=== PATIENT | male | born 1980 | race Caucasian/White ===

== ENCOUNTER 2021-02-07 14:26 | Outpatient (AMBR) | payer MEDICAID, SELFPAY ==
--- NOTE | 2021-02-02 14:37 | PT.OIERPT ---
PT OP Initial Eval Patient Information Visit Reasons: left hand metacarpal Medical Diagnosis: S63.065s Treatment Dx #1: Left Hand Pain Treatment Dx #2: Left Hand Weakness Start of Care: 02/02/21 Date of Onset: Sep 2020 Initial Assessment Subjective Pt is a 41 y/o male pin removal of 4th and 5th metacarpal s/p ORIF in Sep 2020 after he broke his hand by punching a tool bag. Pt still has left hand pain (6/10) and weakness. 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
--- NOTE | 2021-02-07 15:35 | PT.ODAYNRPT ---
PT Outpatient Daily Note Date of Service: 02/07/21 OP Daily Note Visit Reasons: left hand metacarpal Outpatient Physical Therapy Treatment Date: 02/07/21 Subjective: Pt mention that his hand is okay Objective: Please see flow chart for list of ther ex performed Assessment: tolerate exercises with minimal pain Plan: Continue with PT Length of Time (minutes) of Treatment: 30 Minutes Office Procedures PT Treatments PT Date of Service: 02/02/21 OP PT Eval Mod Complex 30 minutes: Yes PT Treatments PT Date of Service: 02/07/21 Therapeutic Exercise 30 minutes: Yes
== END 2021-02-16 23:59 | disposition home or self-care (01) ==
PROVIDERS: PCP Physician Assistant Medical; Referring Provider Physician Assistant Medical; Visit Provider Physician Assistant Medical
DX: S63.06 Subluxation and dislocation of metacarpal (bone), proximal end (principal); M79.642 Pain in left hand; R53.1 Weakness; X58.XXXS Exposure to other specified factors, sequela
CPT/HCPCS: 97110; 97162

== ENCOUNTER 2024-12-08 00:36 | Emergency (ER) | payer MEDICAID, SELFPAY ==
[2024-12-08 00:40] VITALS: PULSE 130; RESP 20; BMI 25.0
[2024-12-08 00:46] VITALS: BP 193/136; PULSE 133; RESP 20; TEMP 37.3; O2SAT 99
[2024-12-08 00:51] VITALS: PULSE 130
--- NOTE | 2024-12-08 00:59 | EDNOTE_ITS ---
ED Abdominal Pain RME/HPI General Chief Complaint: Abdominal Pain Stated complaint: ABDOMINAL PAIN Time seen by provider: 12/08/24 01:00 Arrival date/time: 12/08/24 00:36 RME / HPI RME / HPI narrative: Dr. Mercado?s Main ED Evaluation: 44yo male with a history of IDDM, HTN, HLD, gastroparesis BIBA from home presents to the ED for a chief complaint of diffuse abdominal pain x 5 days. Patient reports associated nausea and vomiting, reporting he has been unable to keep anything down. Patient has been compliant with his medications. Patient denies any fever, chills, or any other associated symptoms. Denies any previous instances of DKA. Patient admits to smoking marijuana. Related Data Home Medications ?Medication ?Instructions ?Recorded ?Confirmed acetaminophen 650 mg 650 mg PO PRN PRN Pain 09/1309/29/23 tablet,extended release (Tylenol 8 Hour) diclofenac sodium 1 % topical gel 2 g topical QDAY 09/29/23 loperamide 2 mg capsule 2 mg PO PRN PRN loose stool 09/14/23 09/29/23 (Anti-Diarrheal (loperamide)) sitagliptin phosphate 100 mg 25 mg PO QDAY 09/14/23 tablet (Januvia) zolpidem 10 mg tablet 10 mg PO QHS PRN insomnia 09/29/23 Previous Rx's ?Medication ?Instructions ?Recorded pen needle, diabetic 31 gauge x #100 ea 08/30/2205/02 (AboutTime Pen Needle) insulin lispro 100 unit/mL 1 sliding scale dose subcut 03/05/23 subcutaneous pen (Humalog KwikPen USEASDIRECTD 1 month #15 mL (U-100) Insulin) lancets 30 gauge #200 ea 03/05/23 blood-glucose sensor (FreeStyle #2 ea 04/09/23 Bernardo 3 Sensor device) flash glucose scanning reader #1 ea 04/09/23 (FreeStyle Bernardo 2 Solway) insulin glargine 100 unit/mL (3 20 unit (0.2 mL) subcu t QPM 1 04/09/23 mL) subcutaneous pen (Lantus month #6 mL Solostar U-100 Insulin) blood-glucose sensor (FreeStyle #1 ea 05/04/23 Bernardo 3 Sensor device) fluoxetine 20 mg capsule 20 mg PO QDAY 1 month #30 ca ps 05/09/23 metoprolol succinate 25 mg 25 mg PO QHS #30 tabs 07/07 tablet,extended release 24 hr magnesium citrate 150 ml PO QDAY PRN constipat ion 09/14/23 #296 mL metoclopramide HCl 10 mg tablet 10 mg PO Q8HR nausea a nd vomiting 09/14/23 (Reglan) #90 tabs pantoprazole 20 mg tablet,delayed 20 mg PO BID #60 tab s 09/14/23 release blood sugar diagnostic (Accu-Chek #100 ea 09/29/23 Guide test strips) blood-glucose meter (Accu-Chek #1 ea 09/29/23 Guide Me Glucose Meter) celecoxib 100 mg capsule (Celebrex) 100 mg PO BID PRN pain #60 caps 09/29/23 gabapentin 800 mg tablet 800 mg PO TID 1 month #90 ta bs 09/29/23 lisinopril 10 mg tablet 10 mg PO QDAY Hypertension # 30 tabs 09/29/23 metoclopramide HCl 10 mg tablet 10 mg PO Q6H PRN nause a and 12/08/24 (Reglan) vomiting #30 tabs Allergies Allergy/AdvReac Type Severity Reaction Status Date / Time hydrocodone Allergy Severe itching Verified 12/08/24 00:46 morphine Allergy Mild Hypertensio Verified 12/08/24 00:46 n Review of Systems Review of Systems Systems Reviewed: All systems reviewed, normal except as documented Past Medical History Past Medical History NEUROLOGIC: Negative Neurological Disorders or Seizures CARDIAC: Positive Hypercholesterolemia and Hypertension; Negative Cardiac Disorders or Congestive Heart Failure RESPIRATORY: Negative Chronic Obstructive Pulmonary Disease (COPD) or Asthma GASTROINTESTINAL: Positive Gastrointestinal Disorders and Ulcer; Negative Gastroesophageal Reflux Disease GENITOURINARY: Positive Renal Disease; Negative Genitourinary Disorders MUSCULOSKELETAL: Negative Musculoskeletal Disorders ENDOCRINE: Positive Endocrine Disorders and Diabetes Mellitus Type 2; Negative Diabetes Mellitus Type 1 HEMATOLOGIC: Negative Blood Disorders or Sickle Cell Disease PSYCHO/SOCIAL: Positive Recreational Drug Use OTHER HISTORY: Negative Autoimmune Disease, Blood Transfusions, Blood Transfusion Reaction, Anesthesia Reactions, Organ Transplant, MRSA, Clostridium Difficile or Cancer Family History FAMILY HISTORY: Positive Family Cardiac Disorders; Negative Family Psychiatric Problems, Family Respiratory Disorders, Family Gastrointestinal Problems, Family Cancer, Family Surgery or Family Anesthesia Reaction Surgical History SURGICAL: Negative Cardiac Surgery, Ear Surgery, Abdominal Surgery, Nephrectomy, Joint Replacement, Neurologic Surgery, Vasectomy or Organ Transplant Social History SMOKING STATUS: Current some day smoker SECOND HAND EXPOSURE: No SUBSTANCE USE: marijuana (QUIT 2 WKS AGO OF 11/07/20. ) ED Exam Narrative Physical exam: Generally patient is alert somewhat ill-appearing, heart tachycardic rate with regular rhythm, lungs clear to auscultation equal bilaterally, abdomen soft bowel sounds present nondistended with epigastric abdominal tenderness without rebound, skin is cool pale and dry, neurologic exam [place] Coma Scale of 15 Course Quality Measures none Orders Category Date Time Status CT Screening NOW Care 12/08/24 01:09 Active EKG (ED ONLY) *Do not use* NOW Care 12/08/24 00:[address] abdomen pelvis w con Stat Exams 12/08/24 01:09 Ordered EKG (ED Only) Stat Exams 12/08/24 00:51 Ordered CBC Stat Lab 12/08/24 01:10 Completed CMP [Comprehensive Metabolic Panel] Stat Lab 12/08/24 01:10 Completed Drug Screen,Urine Stat Lab 12/08/24 01:25 Completed Lactic Acid [Lactate (Lactic Acid)] Stat Lab 12/08/24 01:10 Results Lipase Stat Lab 12/08/24 01:10 Completed VBG [Venous Blood Gas] Stat Lab 12/08/24 01:10 Completed HYDROmorphone INJ [Dilaudid Inj] Med 12/08/24 01:35 Discontinued 1 mg IVP X1 ONE Haloperidol Lactate [Haldol Inj] Med 12/08/24 01:05 Discontinued 5 mg IV X1 ONE Metoclopramide Inj [Reglan Inj] Med 12/08/24 00:57 Discontinued 10 mg IVP X1 ONE Sodium Chloride 0.9% 1000 ml [Ns] 1,000 ml Med 12/08/24 00:58 Discontinued IV 999 mls/hr Sodium Chloride 0.9% 1000 ml [Ns] 1,000 ml Med 12/08/24 01:05 Discontinued IV 999 mls/hr Vital Signs Vital signs: Vital Signs Temperature 99.1 F 12/08/24 00:46 Pulse Rate 133 H 12/08/24 00:46 Respiratory Rate 20 12/08/24 00:46 Blood Pressure 193/136 H 12/08/24 00:46 Pulse Oximetry (%) 99 12/08/24 00:46 Oxygen Delivery Method Room Air 12/08/24 00:46 Abdominal Pain [facility] Narrative [facility] Narrative:: Scribe Attestation: 12/08/24 - Priscilla Rodrigues am scribing for and in the presence of Dr. Mercado. I interpreted all labs. Patient uses marijuana on a regular basis. He states he has been compliant with his insulin. He does have a history of diabetic gastroparesis and has had cannabinoid hyperemesis syndrome in the past. He continues to smoke marijuana. He patient was hydrated with 2 L of IV normal saline. He is not in diabetic ketoacidosis. He was given Reglan 10 mg IV, Haldol 5 mg IV and Dilaudid 1 mg IV with marked improvement. Abdominal exam is quite benign. Patient is not diabetic ketoacidosis. Patient was counseled on the need to stop marijuana. Reglan as prescribed. Follow-up with his doctor. Continue his current insulin regimen. Return to ER as needed or if condition worsens. Patient data External records reviewed:: [facility] previous records (Per chart review, patient was admitted here on 09/12/23 for lactic acidosis.) and EMS form Clinical information provided by:: patient Social determinants that could affect healthcare access:: substance use (marijuana use) Patient has the following chronic illnesses:: DMII, HTN, HLD, gastroparesis How is presenting disease/condition affected by chronic disease/condition?: exacerbated by Evaluation data The following diagnostics were reviewed and interpreted by me:: lab results and EKG tracing(s) Lab and/or radiology exams considered but not ordered:: none Interpretation Summary: See [facility] Medications / Prescriptions Medications or Prescriptions considered but not ordered:: none Medication administrations:: Medication Administration History Discontinued Medications Haloperidol Lactate (Haloperidol Lact Inj 5 Mg/Ml Vial) 5 mg IV X1 ONE Stop: 12/08/24 01:06 Last Admin: 12/08/24 01:13 Dose: 5 mg Documented By: EVANS Hydromorphone HCl (Hydromorphone Inj 2 Mg/Ml Vial) 1 mg IVP X1 ONE Stop: 12/08/24 01:36 Last Admin: 12/08/24 01:58 Dose: 1 mg Documented By: LB Sodium Chloride (Ns) 1,000 mls @ 999 mls/hr IV .Q1H1M ONE Stop: 12/08/24 01:58 Last Infusion: 12/08/24 02:17 Dose: Infused Documented By: Admin: 12/08/24 01:14 Dose: 999 mls/hr Documented By: EVANS Sodium Chloride (Ns) 1,000 mls @ 999 mls/hr IV .Q1H1M ONE Stop: 12/08/24 02:05 Last Infusion: 12/08/24 02:18 Dose: Infused Documented By: Admin: 12/08/24 01:14 Dose: 999 mls/hr Documented By: EVANS Metoclopramide HCl (Metoclopramide Inj 5 Mg/Ml Vial 2 Ml) 10 mg IVP X1 ONE; Protocol Stop: 12/08/24 00:58 Last Admin: 12/08/24 01:13 Dose: 10 mg Documented By: EVANS see above Consultations Consultation(s) initiated? (list below): No Diagnosis Differential diagnosis abdominal pain: other (See MDM) Most likely diagnosis given after review of the tests above:: see clinical impression below Admission Indicated Admission indicated?: not indicated Admission Request Was there a request for admission?: No Disposition Plan Disposition Plan: Discharge Discharge Attestation Discharge Attestation: The patient and all family members were given an opportunity to ask questions and understood the discharge instructions. Discharge instructions specifically effects, indications for sooner follow up or return to the emergency department, and the expected course of current diagnosis. Patient condition: Stable Discharge Plan Plan Patient Disposition: HOME (Self Care) Prescriptions/Referrals Prescriptions/Med Rec: New metoclopramide HCl [Reglan] 10 mg tablet 10 mg PO Q6H PRN (Reason: nausea and vomiting) Qty: 30 0RF No Action insulin glargine [Lantus Solostar U-100 Insulin] 100 unit/mL (3 mL) insulin pen 20 unit subcut QPM 30 Days Qty: 6 2RF Rx Instructions: lantus 20 units QDAY (DME) FreeStyle Bernardo 2 Solway Misc See Rx Instructions .Route Qty: 1 0RF Rx Instructions: As directed (DME) FreeStyle Bernardo 3 Sensor Device See Rx Instructions .Route Qty: 2 11RF Rx Instructions: As directed lisinopril 10 mg tablet 10 mg PO QDAY Qty: 30 5RF gabapentin 800 mg tablet 800 mg PO TID 30 Days Qty: 90 2RF celecoxib [Celebrex] 100 mg capsule 100 mg PO BID PRN (Reason: pain) Qty: 60 1RF (DME) blood-glucose meter [Accu-Chek Guide Me Glucose Mtr] Misc See Rx Instructions .Route Qty: 1 0RF Rx Instructions: Test TID and PRN as directed (DME) Accu-Chek Guide test strips Strip See Rx Instructions .Route Qty: 100 5RF Rx Instructions: Test TID and PRN as directed insulin lispro [Humalog KwikPen Insulin] 100 unit/mL insulin pen 1 sliding scale dose subcut USEASDIRECTD 30 Days Qty: 15 1RF (DME) lancets 30 gauge misc See Rx Instructions .Route Qty: 200 1RF Rx Instructions: As directed fluoxetine 20 mg capsule 20 mg PO QDAY 30 Days Qty: 30 2RF metoprolol succinate 25 mg tablet extended release 24 hr 25 mg PO QHS Qty: 30 2RF (DME) FreeStyle Bernardo 3 Sensor Device See Rx Instructions .Route Qty: 1 2RF Rx Instructions: As directed (DME) pen needle, diabetic [AboutTime Pen Needle] 31 gauge x 3/16 needle See Rx Instructions .Route Qty: 100 1RF Rx Instructions: As directed zolpidem 10 mg tablet 10 mg PO QHS MDD 10 mg PRN (Reason: insomnia) Januvia 100 mg tablet 25 mg PO QDAY diclofenac sodium 1 % gel 2 g TOPICAL QDAY Patient Comments: apply 2 grams to affected area once daily loperamide [Anti-Diarrheal (loperamide)] 2 mg capsule 2 mg PO PRN PRN (Reason: loose stool) acetaminophen [Tylenol 8 Hour] 650 mg tablet extended release 650 mg PO PRN PRN (Reason: Pain) pantoprazole 20 mg tablet,delayed release (DR/EC) 20 mg PO BID Qty: 60 0RF metoclopramide HCl [Reglan] 10 mg tablet 10 mg PO Q8HR Qty: 90 0RF magnesium citrate Solution 150 ml PO QDAY PRN (Reason: constipation) Qty: 296 1RF Referrals: No Primary/Family,Physician [Primary Care Provider] - In 1 week Problem List Clinical Impression: Diabetic gastroparesis, Cannabinoid hyperemesis syndrome Patient/Caregiver Discharge Instructions Education Materials: ED Diabetic Gastroparesis Additional Instructions: Stop the marijuana. Reglan as prescribed. Continue your current insulin regimen. Follow-up with your doctor. Return to ER as needed or if condition worsens. Print Language: Ecuadorean Stand Alone Forms: Becky Award Info., Patient Portal Info Letter
[2024-12-08] MEDS: METOCLOPRAMIDE INJ 5 MG/ML VIAL 2 ML 10 MG IVP (01:13)
[2024-12-08] MEDS: HALOPERIDOL LACT INJ 5 MG/ML VIAL IV (01:13)
[2024-12-08] MEDS: SODIUM CHLORIDE 0.9% 1000 ML 1,000 ML 999 ML IV ×2 (01:14)
[2024-12-08 01:34] LABS: Base Excess, Venous 3 (-3-3); O2 Saturation, Venous 88 % (96-97); PCO2, Venous 36 mmHg (36-56); PO2, Venous 47 mmHg (15-58); pH, Venous 7.47 (7.33-7.66)
[2024-12-08 01:35] LABS: Basophils # (Auto) 0.1 Thou/mm3 (0.0-0.2); Basophils % (Auto) 1 % (0-2.5); Eosinophils # (Auto) 0.0 Thou/mm3 (0.0-0.5); Eosinophils % (Auto) 0 % (0-10); Hematocrit 47.6 % (41.0-53.0); Hemoglobin 16.2 g/dL (13.5-16.0); Immature Granulocytes Auto 0.06 Thou/mm3 (0.00-0.00); Lactate (Lactic Acid) 3.5 mMol/L (0.4-2.0); Lymphocytes # (Auto) 1.3 Thou/mm3 (1.0-4.8); Lymphocytes % (Auto) 10 % (10-50); Mean Corpuscular HGB Conc 34.0 g/dl (31.0-37.0); Mean Corpuscular Hemoglobin 27.7 pg (25.0-35.0); Mean Corpuscular Volume 82 fL (80-100); Monocytes # (Auto) 0.3 Thou/mm3 (0.0-0.8); Monocytes % (Auto) 2 % (0-12); Neutrophils # (Auto) 11.5 Thou/mm3 (1.8-7.7); Neutrophils % (Auto) 87 % (37-80); Nucleated Red Blood Cell # 0.00 Thou/mm3 (0.00-0.00); Nucleated Red Blood Cell % 0 /100 WBC (0); Platelet Count 367 Thou/mm3 (140-440); RDW Standard Deviation 40.1 fL (35.1-43.9); Red Blood Count 5.84 Miln/mm3 (4.50-5.90); White Blood Count 13.3 Thou/mm3 (3.8-10.6)
[2024-12-08 01:51] LABS: Amphetamine/Methamp Scrn,U Negative (Negative); Barbiturate Screen,Urine Negative (Negative); Benzodiazepines Screen,Urine Negative (Negative); Benzoylecgonine Screen, Ur Negative (Negative); Fentanyl Screen,Urine Negative (Negative); Opiate Screen,Urine Negative (Negative); THC Screen,Urine Positive (Negative)
[2024-12-08] MEDS: HYDROmorphone INJ 2 MG/ML VIAL 1 MG IVP (01:58)
[2024-12-08 01:59] LABS: Alanine Aminotransferase 12 U/L (10-49); Albumin, Serum 5.1 gm/dL (3.5-5.0); Albumin/Globulin Ratio 1.6 (1.2-2.2); Alkaline Phosphatase 148 U/L (46-116); Anion Gap 18 (7-16); Aspartate Amino Transferase 17 U/L (0-34); BUN/Creatinine Ratio 14 Ratio (12-20); Bilirubin,Total 0.4 mg/dL (0.3-1.2); Blood Urea Nitrogen 19 mg/dL (9-23); Calcium 10.0 mg/dL (8.3-10.6); Calcium (Corrected) 10.0 mg/dL (8.5-10.1); Carbon Dioxide 22.5 mMol/L (20.0-31.0); Chloride 96 mMol/L (98-107); Creatinine (Component) 1.4 mg/dL (0.6-1.3); Estimated Creatinine Clearance 59.2 mL/min (>60); Globulin 3.1 gm/dL (2.3-3.5); Glucose 372 mg/dL (74-106); Lipase 32 U/L (12-53); Osmolality,Calculated 289 (275-295); Potassium 3.8 mMol/L (3.4-5.1); Sodium 136 mMol/L (136-145); Total Protein 8.2 gm/dL (5.7-8.2); eGFR > 60 See Note
[2024-12-08 03:06] VITALS: BP 101/75; PULSE 104; RESP 20; TEMP 37.2; O2SAT 94
[2024-12-08 04:30] LABS: Reflex Lactate? Y
== END 2024-12-08 04:25 | disposition home or self-care (01) ==
PROVIDERS: Emergency Provider Emergency Medicine
DX: E11.43 Type 2 diabetes mellitus with diabetic autonomic (poly)neuropathy (principal); K31.84 Gastroparesis; R11.16 Cannabis hyperemesis syndrome; E78.5 Hyperlipidemia, unspecified; I10 Essential (primary) hypertension; Z79.4 Long term (current) use of insulin; Z96.60 Presence of unspecified orthopedic joint implant
CPT/HCPCS: 36415; 80053; 80307; 82803; 83605; 83690; 85025; 93005; 96361; 96374; 96375; 99285; J1171; J1630; J2765; J7030

== ENCOUNTER 2025-01-04 13:06 | Inpatient (IN) | payer SELFPAY ==
[2025-01-04] VITALS (10 sets, daily range): BP systolic 116–179; BP diastolic 84–110; PULSE 90–144; RESP 12–22; TEMP 36.8–37.2; O2SAT 94–97; BMI 22.1
--- NOTE | 2025-01-04 13:07 | EKG_ITS ---
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
[2025-01-04] MEDS: MORPHINE SULF INJ 4 MG/ML VIAL 2 MG IVP ×2 (13:25→16:16)
--- NOTE | 2025-01-04 13:28 | EDNOTE_ITS ---
ED Chest Pain RME/HPI General Chief Complaint: Chest Pain Stated Complaint: CHEST PAIN Time Seen by Provider: 01/04/25 13:16 Arrival date/time: 01/04/25 13:06 RME / HPI RME / HPI narrative: cc: chest pain Patient is a 44-year-old male with a past medical history of hypertension, diabetes mellitus type 2 insulin-dependent, IBS, cannabis hyperemesis syndrome, and history of DKA who presented to the emergency room with a chief complaint of chest pain. Patient stated chest pain has been constant for over 2 days described as sharp and radiating down to his left arm. Patient also complaining of diffuse abdominal tenderness. Patient also complaining of nausea but no vomiting. Patient denied any sick contacts. Patient denied any shortness of breath. Denied diarrhea. Glargine 25 units HS & Lispro 10 TID Related Data Home Medications ?Medication ?Instructions ?Recorded ?Confirmed acetaminophen 650 mg 650 mg PO PRN PRN Pain 09/1309/29/23 tablet,extended release (Tylenol 8 Hour) diclofenac sodium 1 % topical gel 2 g topical QDAY 09/29/23 loperamide 2 mg capsule 2 mg PO PRN PRN loose stool 09/14/23 09/29/23 (Anti-Diarrheal (loperamide)) sitagliptin phosphate 100 mg 25 mg PO QDAY 09/14/23 tablet (Januvia) zolpidem 10 mg tablet 10 mg PO QHS PRN insomnia 09/29/23 Previous Rx's ?Medication ?Instructions ?Recorded pen needle, diabetic 31 gauge x #100 ea 08/30/2205/02 (AboutTime Pen Needle) insulin lispro 100 unit/mL 1 sliding scale dose subcut 03/05/23 subcutaneous pen (Humalog KwikPen USEASDIRECTD 1 month #15 mL (U-100) Insulin) lancets 30 gauge #200 ea 03/05/23 blood-glucose sensor (FreeStyle #2 ea 04/09/23 Bernardo 3 Sensor device) flash glucose scanning reader #1 ea 04/09/23 (FreeStyle Bernardo 2 [place]) insulin glargine 100 unit/mL (3 20 unit (0.2 mL) subcu t QPM 1 04/09/23 mL) subcutaneous pen (Lantus month #6 mL Solostar U-100 Insulin) blood-glucose sensor (FreeStyle #1 ea 05/04/23 Bernardo 3 Sensor device) fluoxetine 20 mg capsule 20 mg PO QDAY 1 month #30 ca ps 05/09/23 metoprolol succinate 25 mg 25 mg PO QHS #30 tabs 07/07 tablet,extended release 24 hr magnesium citrate 150 ml PO QDAY PRN constipat ion 09/14/23 #296 mL metoclopramide HCl 10 mg tablet 10 mg PO Q8HR nausea a nd vomiting 09/14/23 (Reglan) #90 tabs pantoprazole 20 mg tablet,delayed 20 mg PO BID #60 tab s 09/14/23 release blood sugar diagnostic (Accu-Chek #100 ea 09/29/23 Guide test strips) blood-glucose meter (Accu-Chek #1 ea 09/29/23 Guide Me Glucose Meter) celecoxib 100 mg capsule (Celebrex) 100 mg PO BID PRN pain #60 caps 09/29/23 gabapentin 800 mg tablet 800 mg PO TID 1 month #90 ta bs 09/29/23 lisinopril 10 mg tablet 10 mg PO QDAY Hypertension # 30 tabs 09/29/23 metoclopramide HCl 10 mg tablet 10 mg PO Q6H PRN nause a and 12/08/24 (Reglan) vomiting #30 tabs Allergies Allergy/AdvReac Type Severity Reaction Status Date / Time promethazine Allergy Hallucinati Verified 01/04/25 13:29 ng Review of Systems Review of Systems Narrative Review of Systems: General appearance: NO weight change, NO fatigue, NO weakness, NO fever, NO chills, NO night sweats, No cough Skin: NO rash, NO itching, NO sores, NO moles HEENT: NO Trauma, NO nausea, NO vomiting, NO visual changes, NO blurry vision, NO double vision, NO tinnitus, NO vertigo, NO ear discharge, NO rhinorrhea, NO stuffiness, NO sneezing, NO allergy, NO epistaxis. NO Hoarseness, NO sore throat, NO swollen neck. Cardiac: Yes chest pain, Palpitations, NO dyspnea on exertion, NO orthopnea, NO paroxysmal nocturnal dyspnea, NO edema Respiratory: NO Shortness of Breath, NO Wheezing, NO Cough, NO Sputum, NO hemoptysis GI:NO appetite, NO nausea, NO vomiting, NO dysphagia, NO changes in bowel frequency, NO stool color, NO diarrhea, NO constipation, NO hemetemesis, NO hemorrhoids, NO melena, NO hematechezia, YEs abdominal pain, NO jaundice Renal: NO frequency, NO hesitancy, NO urgency, NO hematuria, NO nocturia, NO incontinence MSK: NO muscle weakness, NO gout, NO arthritis, NO muscle stiffness Neuro: NO headaches, NO tremors, NO weakness, NO paralysis, NO seizures, NO loss of consciousness, NO numbness. Hem: NO anemia, NO easy bruising/bleeding, NO petechiae, NO purpura Endo: NO heat/cold intolerance, NO excessive sweating, NO polyuria, NO polydipsia, NO polyphagia, NO thyroid problems, NO diabetes Pysch: NO mood, NO anxiety, NO depression ED Exam Narrative Physical exam: General Appearance: Alert & Oriented X3, thin male who is lying in bed in mild distress HEENT: Skull symmetrical and atraumatic. Conjunctivae pink and moist. Pupils equal, round, reactive to light and accommodation (PERRL). External ear without lesion or discharge. Straight, nares patient, mucosa pink, no discharge. Cardio: Normal Rate and Rhythm with S1 and S2 heart sounds. No murmurs or extra heart sounds auscultated. No bruits on carotid auscultation. No peripheral edema or cyanosis. Lungs: Symmetric with good expansion. Chest and back non-tender. Breath sounds vesicular without crackles, wheezing or rhonchi Abdomen: tenderness, through out all quadrants, Non-distended, Normal Reactive Bowel Sounds Neuro: Alert, cooperative, oriented to person, place, and time. Speech clear. CN grossly intact. Upper motor strength 5/5 and Lower motor strength 5/5. Sensation intact. Course Quality Measures none Orders Category Date Time Status Bedside Blood Glucose NOW Care 01/04/25 13:14 Active Bedside COVID-19 Antigen Test NOW Care 01/04/25 13:[address] Screening NOW Care 01/04/25 13:[address] Screening NOW Care 01/04/25 15:46 Active Sample Processor Q4H START 00 Care 01/04/25 13:07 Active EKG (ED ONLY) *Do not use* NOW Care 01/04/25 13:07 Completed IV [Insert IV] NOW Care 01/04/25 13:07 Active In and Out Catheter X1 Care 01/04/25 13:39 Completed EKG (ED Only) Stat Exams 01/04/25 13:07 Draft US gall bladder Stat Exams 01/04/25 13:40 Completed XR chest 1V portable Stat Exams 01/04/25 13:34 Completed Alcohol, Blood Medical Stat Lab 01/04/25 13:48 Completed Amylase Stat Lab 01/04/25 13:48 Completed Arterial Blood Gas Stat Lab 01/04/25 15:31 Completed B-Type Natriuretic Peptide Stat Lab 01/04/25 13:21 Completed Beta Hydroxybutyrate Stat Lab 01/04/25 13:48 Completed Blood Culture (Lab) Stat Lab 01/04/25 13:25 Received CBC Stat Lab 01/04/25 13:21 Completed CK [Creatine Kinase] Stat Lab 01/04/25 13:48 Completed CRP [C-Reactive Protein] Stat Lab 01/04/25 13:21 Completed Comprehensive Metabolic Panel Stat Lab 01/04/25 13:21 Completed D-Dimer Stat Lab 01/04/25 13:21 Completed Drug Screen,Urine Stat Lab 01/04/25 14:15 Completed ESR [Sed Rate (ESR)] Stat Lab 01/04/25 13:21 Completed FLU A&B [Influenza A & B Rapid Panel] Stat Lab 01/04/25 14:26 Completed Hemoglobin A1C [Glycohemoglobin w (eAG)] Stat Lab 01/04/25 13:21 Completed Lactic Acid [Lactate (Lactic Acid)] Stat Lab 01/04/25 13:21 Completed Lactic Acid [Lactate (Lactic Acid)] Stat Lab 01/04/25 16:20 Results Lipase Stat Lab 01/04/25 13:48 Completed Magnesium Stat Lab 01/04/25 13:21 Completed Partial Thromboplastin Time Stat Lab 01/04/25 13:21 Completed Procalcitonin Stat Lab 01/04/25 13:48 Completed Prothrombin Time with INR Stat Lab 01/04/25 13:21 Completed Renal Function Panel Stat Lab 01/04/25 16:20 Completed TSH [Thyroid Stimulating Hormone] Stat Lab 01/04/25 13:48 Completed Troponin I Stat Lab 01/04/25 13:21 Completed Urinalysis, C/S if Indicated Stat Lab 01/04/25 14:15 Completed Insulin Regular Med 01/04/25 13:36 Discontinued 10 unit IV X1 ONE Metoprolol Tartrate Inj [Lopressor Inj] Med 01/04/25 13:20 Discontinued 2 mg IVP X1 ONE Metoprolol Tartrate [Lopressor] Med 01/04/25 13:43 Discontinued 25 mg PO X1 ONE Morphine* Inj Med 01/04/25 13:07 Discontinued 2 mg IVP X1 ONE Morphine* Inj Med 01/04/25 15:50 Discontinued 2 mg IVP X1 ONE Nitroglycerin [Nitro-dur Patch] Med 01/04/25 13:09 Discontinued 0.4 mg TOP X1 ONE Ondansetron Inj [Zofran Inj] Med 01/04/25 13:39 Discontinued 4 mg IVP X1 ONE Pantoprazole [Protonix] Med 01/04/25 14:17 Discontinued 40 mg PO X1 ONE Piper/Tazo 3.375 gm Premix [Zosyn] Med 01/04/25 14:13 Discontinued 3.375 gm in 50 ml IV X1 Ringers Lactated 1000 ml [Lactated Ringers] 1,000 ml Med 01/04/25 13:35 Discontinued IV 999 mls/hr Ringers Lactated 1000 ml [Lactated Ringers] 1,000 ml Med 01/04/25 14:13 Discontinued IV 999 mls/hr Vital Signs Vital signs: Vital Signs Temperature 99.0 F 01/04/25 13:20 Pulse Rate 144 H 01/04/25 13:20 Respiratory Rate 21 H 01/04/25 13:20 Blood Pressure 179/110 H 01/04/25 13:20 Pulse Oximetry (%) 97 01/04/25 13:20 Oxygen Delivery Method Room Air 01/04/25 13:20 Chest Pain Patient data External records reviewed:: [facility] previous records Clinical information provided by:: patient Social determinants that could affect healthcare access:: none Patient has the following chronic illnesses:: HTN diabetes Mellitus type 2 IBS How is presenting disease/condition affected by chronic disease/condition?: exacerbated by (DM ) Evaluation data The following diagnostics were reviewed and interpreted by me:: lab results, radiology exam(s) and EKG tracing(s) Lab and/or radiology exams considered but not ordered:: Mpme Interpretation Summary: Patient is a 44-year-old male with a past medical history of hypertension, sebastian betes mellitus type 2, IBS, cannabis hyperemesis syndrome, history of DKA who presented to the emergency room with a chief complaint of chest pain. Chest pain noncardiac and pulmonary as troponin 0.028 and EKG showed no ST elevation. Sepsis alert called as patient's WBC 33.25 concern for leukocytosis, unclear source of etiology as UA negative and chest x-ray showed no acute process. Ultrasound gallbladder negative. Patient meeting SIRS criteria. Pro-Amol 0.51 ESR 45 sepsis alert called. Lactic acidosis of 4.2. Consider autoimmune workup. AKA noted, creatinine of 1.5. Concern for DKA versus HSS as glucose 566 and beta hydroxybutyrate 1.5. Patient is noncompliant with medication as had skipped doses. ABG concern for venous blood draw that was taken at a later time after insulin and boluses have been given. #SIRS criteria, unknown etiology #DKA #LIZZIE #Metabolic acidosis high anion gap #Lactic acidosis Medications / Prescriptions Medications or Prescriptions considered but not ordered:: none Medication administrations:: Medication Administration History Acetaminophen (Acetaminophen 325 Mg Tablet) 650 mg PO Q6H PRN PRN Reason: Fever >100.3, pain 1-3 Stop: 02/03/25 16:44 Apixaban (Apixaban 2.5 Mg Tablet) 5 mg PO BID [facility] Stop: 02/03/25 20:59 Dextrose (Dextrose 50%-Water Inj 50 Ml Syringe) 25 ml IV Q15MIN PRN PRN Reason: BG 50-70 responsive npo pt Stop: 02/03/25 16:50 Dextrose (Dextrose 50%-Water Inj 50 Ml Syringe) 50 ml IV Q15MIN PRN PRN Reason: BG <50 OR BG <70 & pt unresponsive Stop: 02/03/25 16:50 Fluoxetine HCl (Fluoxetine Hcl 10 Mg Capsule) 20 mg PO QDAY [facility] Stop: 02/04/25 08:59 Glucagon (Glucagon Inj 1 Mg Vial) 1 mg IM Q15MIN PRN PRN Reason: BG <70, and no IV access Potassium Chloride (Kcl Ivpb) 10 meq in 100 mls @ 100 mls/hr IV Q1H [facility] Stop: 01/04/25 23:51 Insulin Human Lispro (Insulin Lispro (Admelog) 1 Unit/0.01 Ml Unit) 0 unit SC Q6H [place]; Protocol Stop: 02/03/25 16:59 Last Admin: 01/04/25 18:07 Dose: Not Given Documented By: KM Non-Admin Reason: Per Protocol Metoclopramide HCl (Metoclopramide Inj 5 Mg/Ml Vial 2 Ml) 10 mg IVP Q6H PRN; Protocol PRN Reason: NAUSEA OR VOMITING Stop: 02/03/25 16:44 Metoprolol Succinate (Metoprolol Succinate Xl 25 Mg Tabcr) 25 mg PO QDAY [facility] Stop: 02/04/25 08:59 Pantoprazole Sodium (Pantoprazole 20 Mg Tablet) 20 mg PO BID [place] Stop: 02/03/25 20:59 Discontinued Medications Acetaminophen (Acetaminophen 325 Mg Tablet) 650 mg PO Q6H PRN PRN Reason: Fever >100.3 Stop: 02/03/25 16:44 Acetaminophen (Acetaminophen 325 Mg Tablet) 650 mg PO Q6H PRN PRN Reason: PAIN SCALE 1-3 (mild Stop: 02/03/25 16:44 Gabapentin 600 mg/ Gabapentin (200 mg) 800 mg PO TID [facility] Stop: 02/03/25 21:59 Lactated Ringer's (Lactated Ringers) 1,000 mls @ 999 mls/hr IV .Q1H1M ONE Stop: 01/04/25 14:35 Last Infusion: 01/04/25 14:52 Dose: Infused Documented By: Admin: 01/04/25 13:46 Dose: 999 mls/hr Documented By: TREVIN Lactated Ringer's (Lactated Ringers) 1,000 mls @ 999 mls/hr IV .Q1H1M ONE Stop: 01/04/25 15:13 Last Infusion: 01/04/25 15:23 Dose: Infused Documented By: Admin: 01/04/25 14:21 Dose: 999 mls/hr Documented By: ANTONIO Piperacillin/Tazobactam/Dextrose (Zosyn) 3.375 gm in 50 mls @ 100 mls/hr IV X1 ONE; Protocol Stop: 01/04/25 14:42 Last Infusion: 01/04/25 14:51 Dose: Infused Documented By: Admin: 01/04/25 14:21 Dose: 100 mls/hr Documented By: ANTONIO Insulin Human Regular (Insulin Hum Regular 1 Unit/0.01 Ml (Per Unit)) 10 unit IV X1 ONE Stop: 01/04/25 13:37 Last Admin: 01/04/25 13:45 Dose: 10 unit Documented By: TREVIN Co-signed By: Lisinopril (Lisinopril 2.5 Mg Tablet) 10 mg PO QDAY [place] Stop: 02/04/25 08:59 Metoprolol Tartrate (Metoprolol Tartrate Inj 1 Mg/Ml Vial 5 Ml) 2 mg IVP X1 ONE Stop: 01/04/25 13:21 Last Admin: 01/04/25 13:32 Dose: 2 mg Documented By: TREVIN Metoprolol Tartrate (Metoprolol Tartrate 25 Mg Tablet) 25 mg PO X1 ONE Stop: 01/04/25 13:44 Last Admin: 01/04/25 14:20 Dose: 25 mg Documented By: ANTONIO Morphine Sulfate (Morphine Sulf Inj 4 Mg/Ml Vial) 2 mg IVP X1 ONE Stop: 01/04/25 13:08 Last Admin: 01/04/25 13:25 Dose: 2 mg Documented By: TREVIN Morphine Sulfate (Morphine Sulf Inj 4 Mg/Ml Vial) 2 mg IVP X1 ONE Stop: 01/04/25 15:51 Last Admin: 01/04/25 16:16 Dose: 2 mg Documented By: TREVIN Nitroglycerin (Nitroglycerin 0.4 Mg/Hr Patch.Td24) 0.4 mg TOP X1 ONE Stop: 01/04/25 13:10 Ondansetron HCl (Ondansetron Inj 2 Mg/Ml Inj 2 Ml) 4 mg IVP X1 ONE; Protocol Stop: 01/04/25 13:40 Last Admin: 01/04/25 13:46 Dose: 4 mg Documented By: TREVIN Pantoprazole Sodium (Pantoprazole 40 Mg Tablet) 40 mg PO X1 ONE Stop: 01/04/25 14:18 Last Admin: 01/04/25 14:27 Dose: 40 mg Documented By: ANTONIO same as above Consultations Consultation(s) initiated? (list below): No Diagnosis Chest Pain Differential Diagnosis: fracture of rib, pneumothorax, chest pain and other (DKA ) Most likely diagnosis given after review of the tests above:: Patient is a 44-year-old male with a past medical history of hypertension, diabetes mellitus type 2, IBS, cannabis hyperemesis syndrome, history of DKA who presented to the emergency room with a chief complaint of chest pain. Chest pain noncardiac and pulmonary as troponin 0.028 and EKG showed no ST elevation. Sepsis alert called as patient's WBC 33.25 concern for leukocytosis, unclear source of etiology as UA negative and chest x-ray showed no acute process. Ultrasound gallbladder negative. Patient meeting SIRS criteria. Pro-Amol 0.51 ESR 45 sepsis alert called. Lactic acidosis of 4.2. Consider autoimmune workup. AKA noted, creatinine of 1.5. Concern for DKA versus HSS as glucose 566 and beta hydroxybutyrate 1.5. Patient is noncompliant with medication as had skipped doses. ABG concern for venous blood draw that was taken at a later time after insulin and boluses have been given. #SIRS criteria, unknown etiology #DKA #LIZZIE #Metabolic acidosis high anion gap #Lactic acidosis - The patient's plan was discussed with attending Dr. Beverly Balbuena MD PGY2 Internal Medicine Admission Indicated Admission indicated?: indicated Explain why admission is indicated or not indicated:: Meeting SIRs Criteria-unknown etiology, DKA, LIZZIE, Lactic Acidosis Admission Request Was there a request for admission?: Yes Admission Attestation Admission request attestation: Discussed case with Dr. Nielsen from Hospitalist service regarding admission. Discussed patients ED course, exam findings, labs, and radiology results. The Hospitalist agrees to accept the patient for admission. Disposition Plan Disposition Plan: Admit Discharge Plan Plan Patient Disposition: Admit Acute Care w/in Hospital Problem List Clinical Impression: Type 2 diabetes mellitus with hyperosmolar nonketotic hyperglycemia, SIRS (systemic inflammatory response syndrome), LIZZIE (acute kidney injury)
--- NOTE | 2025-01-04 13:34 | XR_ITS ---
EXAMINATION: AP chest single view TECHNIQUE: AP portable upright chest single view Date and time: January 04, 2025, 1334 hours INDICATIONS: Chest pain beginning 3 days ago. FINDINGS: Normal heart size Lungs are clear. Osseous structures are significantly demineralized IMPRESSION: No active disease
--- NOTE | 2025-01-04 13:40 | XR_ITS ---
Examination: Abdomen sonogram, Limited Date and time of exam: January 04, 2025, 1416 hours INDICATIONS: Right upper abdominal pain epigastric pain beginning 2 days ago Technique: Real-time sanchez scale transabdominal sonographic images of the upper abdomen obtained. Findings: Normal gallbladder Normal common bile duct 0.3 cm Pancreatic head 2.1 cm Liver 13.8 cm no focal liver lesions Normal hepatopetal flow Patent IVC IMPRESSION: Negative study
[2025-01-04] MEDS: INSULIN HUM REGULAR 1 UNIT/0.01 ML (PER UNIT) 10 UNIT IV (13:45)
[2025-01-04] MEDS: RINGERS LACTATED 1000 ML 1,000 ML 999 ML IV ×2 (13:46→14:21)
[2025-01-04] MEDS: ONDANSETRON INJ 2 MG/ML INJ 2 ML 4 MG IVP (13:46)
[2025-01-04 13:49] LABS: Basophils # (Auto) 0.1 Thou/mm3 (0.0-0.2); Basophils % (Auto) 0 % (0-2.5); Eosinophils # (Auto) 0.0 Thou/mm3 (0.0-0.5); Eosinophils % (Auto) 0 % (0-10); Hematocrit 47.7 % (41.0-53.0); Hemoglobin 16.8 g/dL (13.5-16.0); Immature Granulocytes Auto 0.36 Thou/mm3 (0.00-0.00); Lymphocytes # (Auto) 2.5 Thou/mm3 (1.0-4.8); Lymphocytes % (Auto) 8 % (10-50); Mean Corpuscular HGB Conc 35.2 g/dl (31.0-37.0); Mean Corpuscular Hemoglobin 28.5 pg (25.0-35.0); Mean Corpuscular Volume 81 fL (80-100); Monocytes # (Auto) 2.1 Thou/mm3 (0.0-0.8); Monocytes % (Auto) 6 % (0-12); Neutrophils # (Auto) 28.2 Thou/mm3 (1.8-7.7); Neutrophils % (Auto) 85 % (37-80); Nucleated Red Blood Cell # 0.00 Thou/mm3 (0.00-0.00); Nucleated Red Blood Cell % 0 /100 WBC (0); Platelet Count 376 Thou/mm3 (140-440); RDW Standard Deviation 40.4 fL (35.1-43.9); Red Blood Count 5.90 Miln/mm3 (4.50-5.90); White Blood Count 33.2 Thou/mm3 (3.8-10.6)
[2025-01-04 13:53] LABS: Lactate (Lactic Acid) 4.2 mMol/L (0.4-2.0)
[2025-01-04 13:54] LABS: INR 1.0 (0.9-1.3); Partial Thromboplastin Time 26.5 Seconds (22.0-36.0); Prothrombin Time 10.7 Seconds (9.0-12.2)
[2025-01-04 13:59] LABS: Beta Hydroxybutyrate 1.5 mmol/L (<0.6)
[2025-01-04 14:04] LABS: Alanine Aminotransferase 18 U/L (10-49); Albumin, Serum 4.9 gm/dL (3.5-5.0); Albumin/Globulin Ratio 1.6 (1.2-2.2); Alkaline Phosphatase 151 U/L (46-116); Anion Gap 18 (7-16); Aspartate Amino Transferase 19 U/L (0-34); BUN/Creatinine Ratio 16 Ratio (12-20); Bilirubin,Total 0.6 mg/dL (0.3-1.2); Blood Urea Nitrogen 31 mg/dL (9-23); C-Reactive Protein 2.0 mg/dL (0.0-0.9); Calcium 10.4 mg/dL (8.3-10.6); Calcium (Corrected) 10.4 mg/dL (8.5-10.1); Carbon Dioxide 32.0 mMol/L (20.0-31.0); Chloride 81 mMol/L (98-107); Creatinine (Component) 2.0 mg/dL (0.6-1.3); Estimated Creatinine Clearance 39.5 mL/min (>60); Globulin 3.1 gm/dL (2.3-3.5); Magnesium 1.7 mg/dL (1.6-2.6); Osmolality,Calculated 295 (275-295); Potassium 3.6 mMol/L (3.4-5.1); Sodium 131 mMol/L (136-145); Total Protein 8.0 gm/dL (5.7-8.2); Troponin I 0.028 ng/mL (0.0-0.045); eGFR 42 See Note
[2025-01-04 14:05] LABS: Glucose 566 mg/dL (74-106)
[2025-01-04 14:20] LABS: Collection Type, Urine Clean Catch; Squamous Epithelial Cell,Urine 0 /hpf (0-5)
[2025-01-04] MEDS: METOPROLOL TARTRATE 25 MG TABLET PO (14:20)
[2025-01-04] MEDS: PIPER/TAZO 3.375 GM PREMIX 3.375 GM/50 ML BAG IV (14:21)
[2025-01-04] MEDS: PANTOPRAZOLE 40 MG TABLET PO (14:27)
[2025-01-04 14:37] LABS: Sed Rate (ESR) 45 mm/hr (0-15)
[2025-01-04 14:46] LABS: Bilirubin,Urine Negative (Negative); Blood,Urine 2+ (Negative); Clarity,Urine Clear (Clear/Hazy); Color,Urine Lt-Yellow (Lt Yel-Yel); Culture Indicated,Urine Not Indicated; Glucose, Urine 4+ (Negative); Hyaline Casts,Urine < 1 /hpf (0-1); Ketones,Urine 1+ (Negative); Leukocyte Esterase,Urine Negative (Negative); Nitrite,Urine Negative (Negative); PH,Urine 6.5 (5.0-7.0); Protein,Urine 3+ (Neg - Trace); RBC,Urine 4 /hpf (0-3); Specific Gravity,Urine 1.029 (1.001-1.035); Urobilinogen,Urine Negative mg/dL (0.0-1.0); WBC,Urine 3 /hpf (0-5)
[2025-01-04 14:50] LABS: Amphetamine/Methamp Scrn,U Negative (Negative); Barbiturate Screen,Urine Negative (Negative); Benzodiazepines Screen,Urine Negative (Negative); Benzoylecgonine Screen, Ur Negative (Negative); Fentanyl Screen,Urine Negative (Negative); Opiate Screen,Urine Positive (Negative); THC Screen,Urine Positive (Negative)
[2025-01-04 14:50] LABS: Influenza A Ag Negative; Influenza B Ag Negative
[2025-01-04 14:51] LABS: Alcohol, Blood Medical < 10.0 mg/dL (0-10.0); Amylase 35 U/L (30-118); Creatine Kinase 101 U/L (34-171); Lipase 42 U/L (12-53); Procalcitonin 0.51 ng/ml (0.0-0.49); Thyroid Stimulating Hormone 0.74 uIU/mL (0.55-4.78)
[2025-01-04 14:52] LABS: Glucose Estimated Average 292 mg/dL (80-131); Hemoglobin A1C 11.8 % Hgb (4.8-6.0)
[2025-01-04 15:00] LABS: B-Type Natriuretic Peptide 68 pg/mL (0-100)
[2025-01-04 15:01] LABS: D-Dimer < 250 ng/mL (<600)
[2025-01-04 15:36] LABS: Base Excess -12 (-3-3); HCO3 12 mEq/L (20-26); Inspired Oxygen, FIO2 21 %; O2 Saturation 44 % (91-98); PCO2 20 mmHg (32.0-48.0); pH, Arterial 7.40 (7.35-7.45)
[2025-01-04 15:46] LABS: Allen Test Not Performed; PO2 25 mmHg (83-108); Puncture Site Left Radial
[2025-01-04 16:27] LABS: Lactate (Lactic Acid) 3.2 mMol/L (0.4-2.0)
[2025-01-04 16:30] LABS: Reflex Lactate? Y
--- NOTE | 2025-01-04 16:49 | ECHO_ITS ---
Patient Info Name: Leonel Page Age: 44 years : 1980 Gender: Male Ht: 163 cm Wt: 59 kg BSA: 1.63 m2 BP: 143 / 93 mmHg HR: 95 bpm Exam Date: 01/05/2025 3:12 PM Admit Date: 01/04/2025 Site: [facility] Room Number: [id number] Patient Status: I Exam Type: CA echo doppler complete Safety And Health Manager: Key Berg Ordering Physician: Kori Medina Study Info Indications afib hx per pt - Primary Location: [id number] Left Ventricular Outflow Tract Name Value Normal LVOT 2D LVOT Diameter 1.9 cm LVOT Doppler LVOT Peak Velocity 104 cm/s LVOT Mean Gradient 2 mmHg LVOT VTI 19 cm LVOT VTI/AV VTI Ratio 0.9 LVOT Stroke Volume 55 ml Pulmonic Valve Name Value Normal PV Doppler PV Peak Velocity 95 cm/s PV Regurgitation Doppler CA Peak End Diastolic Velocity 151 cm/s Mitral Valve Name Value Normal MV Doppler MV Decel Rains 420 cm/s2 MV PHT 43 ms MV Area (PHT) 5.1 cm2 4.0-5.0 MV Diastolic Function MV E Peak Velocity 62 cm/s MV A Peak Velocity 66 cm/s MV E/A 0.9 MV Annular TDI MV Septal e' Velocity 6.5 cm/s MV E/e' (Septal) 9.5 MV Lateral e' Velocity 10.3 cm/s MV E/e' (Lateral) 6.0 MV e' Average 8.42 cm/s MV E/e' (Average) 7.8 Tricuspid Valve Name Value Normal TV Regurgitation Doppler TR Peak Velocity 185 cm/s Estimated PAP/RSVP RA Pressure 3 mmHg <=5 PA Systolic Pressure 17 mmHg <36 RV Systolic Pressure 17 mmHg <36 TV Annular TDI TV Lateral Marquita s' Velocity 12.7 cm/s >=9.5 Aortic Valve Name Value Normal AV 2D/MM AV Cusp Sep (MM) 1.3 cm AV Doppler AV Peak Velocity 116 cm/s AV Mean Gradient 3 mmHg AV VTI 22 cm AV Area (Cont Eq VTI) 2.5 cm2 >=3.0 AV Area (Cont Eq Brent) 2.5 cm2 AV DI (Brent) 0.90 AV Regurgitation 2D LVOT Area 2.8 cm2 Ventricles Name Value Normal LV Dimensions 2D/MM IVS Diastolic Thickness (2D) 1.0 cm 0.6-1.0 LVID Diastole (2D) 4.6 cm 4.2-5.8 LVIW Diastolic Thickness (2D) 1.2 cm 0.6-1.0 LVID Systole (2D) 3.1 cm 2.5-4.0 LVOT Diameter 1.9 cm LV Mass (2D Cubed) 181.22 g 88.00-224.00 LV Mass Index (2D Cubed) 111 g/m2 49-115 Relative Wall Thickness (2D) 0.52 <=0.42 IVS/LVIW Diastolic Thickness (2D) 0.83 0.00-1.50 LV Fractional Shortening/Ejection Fraction 2D/MM LV Fractional Shortening (2D) 33 % 25-43 LV EF (2D Teichholz) 61 % RV Dimensions 2D/MM TV Lateral Marquita s' Velocity 12.7 cm/s >=9.5 Atria Name Value Normal LA Dimensions LA Volume (4C A-L) 35 ml LA Volume (BP A-L) 43 ml Left Ventricle Left ventricular chamber dimension is normal. Left ventricular systolic function is normal with visually estimated ejection fraction of 60-65%. There is mild concentric hypertrophy noted in the left ventricle. Left ventricular segmental wall motion is normal. There is grade I diastolic dysfunction in the left ventricle. Right Ventricle Right ventricular chamber dimension is normal. Right ventricular systolic function is normal. Left Atrium Left atrial chamber dimension is normal. Right Atrium Right atrial chamber dimension is normal. Aortic Valve The aortic valve is trileaflet. There is no aortic valve sclerosis. There is no aortic valve stenosis with a peak velocity of 116 cm/s, mean gradient of 3 mmHg, and aortic valve area of 2.5 cm2. There is no aortic valve regurgitation. Pulmonic Valve The pulmonic valve is normal. There is no pulmonic valve stenosis. There is mild pulmonic regurgitation. Mitral Valve The mitral valve has normal leaflets. There is no mitral valve stenosis. There is trace mitral valve regurgitation. Tricuspid Valve The tricuspid valve leaflets are normal. There is no tricuspid valve stenosis. There is mild tricuspid valve regurgitation. No pulmonary hypertension, estimated pulmonary arterial systolic pressure is 17 mmHg and systemic blood pressure of 143 mmHg in systole. Pericardium/Pleural The pericardium appears normal. There is trivial pericardial effusion. No pleural effusion visualized. Inferior Vena Cava Normal inferior vena cava with >50% collapse upon inspiration consistent with normal right atrial pressure, 3 mmHg. Aorta The aortic measurements are indexed to age and body surface area. The aortic root at the sinus of Valsalva is not well visualized. The prox ascending aorta is not well visualized. Summary 1. Left ventricle size is normal and systolic function is normal. Estimated ejection fraction is 60-65%. There is grade I diastolic dysfunction. There is mild concentric hypertrophy noted. 2. Right ventricle chamber size is normal and systolic function is normal. Estimated RVSP is 17 mmHg. 3. There is trace mitral valve regurgitation. 4. There is mild tricuspid valve regurgitation. 5. There is trivial pericardial effusion. Report Signatures Finalized by Sen Maki on 01/06/2025 08:29 PM
[2025-01-04 16:59] LABS: Albumin, Serum 4.1 gm/dL (3.5-5.0); Anion Gap 13 (7-16); BUN/Creatinine Ratio 20 Ratio (12-20); Blood Urea Nitrogen 30 mg/dL (9-23); Calcium 9.3 mg/dL (8.3-10.6); Calcium (Corrected) 9.3 mg/dL (8.5-10.1); Carbon Dioxide 32.9 mMol/L (20.0-31.0); Chloride 91 mMol/L (98-107); Creatinine (Component) 1.5 mg/dL (0.6-1.3); Estimated Creatinine Clearance 52.6 mL/min (>60); Glucose 188 mg/dL (74-106); Osmolality,Calculated 285 (275-295); Phosphorous 4.0 mg/dL (2.4-5.1); Potassium 3.0 mMol/L (3.4-5.1); Sodium 137 mMol/L (136-145); eGFR 59 See Note
--- NOTE | 2025-01-04 17:07 | ESHP_ITS ---
<Statement entered by Suyapa Levine MD - 01/10/25 15:19> I reviewed above note and agree with findings and plans. I have also personally examined the patient with medicine team and went over assessment and plan with medical team including marketing research intern and resident physician. <Statement entered by Jane Nielsen MD - 01/04/25 20:02> Patient was seen and examined by me personally. I have directly supervised and reviewed documentation by the team resident and agree with its findings. ------- Plan of care was discussed with the attending, Dr. Julianna Nielsen, PGY-2 Documentation for date of: 01/04/25 HPI History of Present Illness History of present illness: Mr. Page is a 44-year-old male with past medical history of type 2 diabetes complicated by peripheral neuropathy and gastroparesis, previously hospitalized for DKA, IBS, diverticulosis, cannabis hyperemesis syndrome, A-fib, CVA, factor V Leiden deficiency, hypertension, peptic ulcer disease, depression, anxiety who presented to the ED on 01/04 with intractable nausea and nonbloody nonbilious vomiting x 3 days. Associated with fever, chills, left upper quadrant abdominal pain that radiates to chest and back. Initially reporting chest pain that radiates to arm, jaw, back, abdomen. Reports improved chest pain on examination. Not reproducible on movement or palpation. Patient lives alone and reports that he is compliant with insulin management at home. Patient's mother was initially at bedside, reported that patient is noncompliant with his insulin. Patient denies that he was previously admitted for DKA. Patient also reports that he had 3 previous strokes and received TNK at [facility]. Patient reports that at the time he had dizziness and falls, symptoms lasted for 5 hours. Patient continues to report dizziness. Reports history of A-fib, on metoprolol and Eliquis. Previously saw a sales and service change leader in [facility]. Does not currently follow with sales and service change leader. PCP: Kevan Jones. Reports that he follows annually with ophthalmology. Does not follow up regularly with podiatry. ED course: Afebrile. Tachycardic to 140s, tachypneic to 16, BP 140-170s/80-100s. Labs significant for: WBC 33.2, hemoglobin 16.8. Sodium 131 (corrected sodium 138), chloride 81, bicarb 32, BUN 31, creatinine 2 (baseline ~1.2), glucose 566. Alk phos 151. Fingerstick glucose 396 -> 589 -> 525 -> 175. Anion gap 18. Serum osm 295. BHB 1.5. ABG 7.4/. UA 3+ protein, 4+ glucose, 1+ ketone, 2+ blood, 4 RBC. A1c 11.8. Lactic acid 4.2 -> 3.2. CRP 2, Pro-Amol 0.51. UDS positive opiates, THC. Troponin, D-dimer, BNP, amylase, lipase, TSH, CK, alcohol level, flu unremarkable. Gallbladder ultrasound unremarkable, no CBD dilation. Chest x-ray unremarkable. EKG and blood cultures pending. Given pantoprazole 40 p.o., Zosyn 3.375 g x 1, metoprolol 25 mg p.o., Zofran 4 mg IV, 2 L LR, Regular 10 U, metoprolol 2 mg IV, morphine 2 mg IV. PMHx: T2DM complicated by peripheral neuropathy and gastroparesis, DKA, IBS, diverticulosis, cannabis hyperemesis syndrome, A-fib, CVA, factor V Leiden deficiency, hypertension, peptic ulcer disease, depression, anxiety, and insomnia, glaucoma Allergies: Promethazine Home meds: Eliquis 5 mg twice daily Humalog 25 U nightly, lispro sliding scale (mother reports that patient is noncompliant with insulin) Fluoxetine 20 mg daily Lisinopril 10 mg daily Pantoprazole 20 mg BID Gabapentin 800 mg TID SgHx: left wrist fracture repair SHx: Denies alcohol use. Daily cannabis use. Remote methamphetamine use last use > 20 years ago FHx: Mother - T2DM, father - alcohol use disorder, CHELSI(MOM): [phone] Review of Systems Review of Systems Narrative Review of Systems: 14 point ROS negative other than HPI Exam Vital Signs Temp Pulse Resp BP Pulse Ox O2 Del Method 98.4 F 97 22 H 133/84 H 94 L Room Air 01/04/25 16:00 01/04/25 16:00 01/04/25 16:00 01/04/25 16:00 01/04/25 16:00 01/04/25 16:00 Narrative Exam General: No acute distress, well nourished Eye: PERRL, EOMI, erythematous sclera left eye, no pain on EOM HENT: Normocephalic, atraumatic, normal hearing, moist oral mucosa Neck: Supple, non-tender, no JVD, no lymphadenopathy Lungs: Clear to auscultation bilaterally, non-labored respirations, symmetric chest rise, no use of accessory muscles Heart: Normal S1 and S2, no S3 or S4 appreciated. Normal rate and regular rhythm, no murmurs, rubs gallops, or edema. Peripheral pulses intact bilaterally, capillary refill brisk distally Abdomen: Soft, TTP LUQ and epigastric region, non-distended, normal bowel sounds. No guarding or rebound tenderness. Musculoskeletal: Normal range of motion and strength, no tenderness or swelling. No tenderness to palpation or reproducible chest pain upon palpation to useSkin: Skin is warm, dry, no rashes or lesions. Tattoos appreciated. No open wounds or areas of erythema appreciated. Neurologic: Alert, awake and oriented x3. CN II-XII grossly intact. Decreased sensation to light touch symmetric and b/l in LE to knee Psychiatric: Cooperative, appropriate mood and affect Results: Labs 01/04/25 13:21 01/04/25 16:20 Labs: Short CBC 01/04/25 Range/Units 13:21 WBC 33.2 H (3.8-10.6) Thou/mm3 Hgb 16.8 H (13.5-16.0) g/dL Hct 47.7 (41.0-53.0) % Plt Count 376 (140-440) Thou/mm3 BMP 01/04/25 01/04/25 13:21 16:20 Sodium 131 L 137 Potassium 3.6 3.0 L D Chloride 81 L 91 L Carbon Dioxide 32.0 H 32.9 H BUN 31 H 30 H Creatinine 2.0 H 1.5 H D Glucose 566 H* 188 H D Calcium 10.4 9.3 Cardiac Enzymes 01/04/25 01/04/25 Range/Units 13:21 13:48 Total Creatine Kinase 101 (34-171) U/L Troponin I 0.028 (0.0-0.045) ng/mL Liver Function 01/04/25 01/04/25 Range/Units 13:21 16:20 Total Bilirubin 0.6 (0.3-1.2) mg/dL AST 19 (0-34) U/L ALT 18 (10-49) U/L Alkaline Phosphatase 151 H (46-116) U/L Albumin 4.9 4.1 D (3.5-5.0) gm/dL Urine 01/04/25 Range/Units 14:15 Urine Color Lt-Yellow (Lt Yel-Yel) Urine Clarity Clear (Clear/Hazy) Urine pH 6.5 (5.0-7.0) Ur Specific [place] 1.029 (1.001-1.035) Urine Protein 3+ A (Neg - Trace) Urine Glucose (UA) 4+ A (Negative) ABG Interpretation ABG results: 01/04/25 15:31 ABG pH 7.40 ABG pCO2 20 L ABG pO2 25 L* ABG HCO3 12 L ABG O2 Saturation 44 L ABG Base Excess -12 L Quality Measures Quality Measures none Medications Home Medications and Allergies Home Medications ?Medication ?Instructions ?Recorded ?Confirmed ?Type acetaminophen 650 mg 650 mg PO PRN PRN Pain 09/1309/29/23 History tablet,extended release (Tylenol 8 Hour) diclofenac sodium 1 % topical gel 2 g topical QDAY 09/29/23 History loperamide 2 mg capsule 2 mg PO PRN PRN loose stool 09/14/23 09/29/23 History (Anti-Diarrheal (loperamide)) sitagliptin phosphate 100 mg 25 mg PO QDAY 09/14/23 History tablet (Januvia) zolpidem 10 mg tablet 10 mg PO QHS PRN insomnia 09/29/23 History Allergies Allergy/AdvReac Type Severity Reaction Status Date / Time promethazine Allergy Hallucinati Verified 01/04/25 13:29 ng Visit Medications Acetaminophen (Acetaminophen 325 Mg Tablet) 650 mg PO Q6H PRN PRN Reason: Fever >100.3, pain 1-3 Stop: 02/03/25 16:44 Apixaban (Apixaban 2.5 Mg Tablet) 5 mg PO BID CHICHO Stop: 02/03/25 20:59 Dextrose (Dextrose 50%-Water Inj 50 Ml Syringe) 25 ml IV Q15MIN PRN PRN Reason: BG 50-70 responsive npo pt Stop: 02/03/25 16:50 Dextrose (Dextrose 50%-Water Inj 50 Ml Syringe) 50 ml IV Q15MIN PRN PRN Reason: BG <50 OR BG <70 & pt unresponsive Stop: 02/03/25 16:50 Glucagon (Glucagon Inj 1 Mg Vial) 1 mg IM Q15MIN PRN PRN Reason: BG <70, and no IV access Insulin Human Lispro (Insulin Lispro (Admelog) 1 Unit/0.01 Ml Unit) 0 unit SC Q6H CHICHO; Protocol Stop: 02/03/25 16:59 Metoclopramide HCl (Metoclopramide Inj 5 Mg/Ml Vial 2 Ml) 10 mg IVP Q6H PRN; Protocol PRN Reason: NAUSEA OR VOMITING Stop: 02/03/25 16:44 Discontinued Medications Acetaminophen (Acetaminophen 325 Mg Tablet) 650 mg PO Q6H PRN PRN Reason: Fever >100.3 Stop: 02/03/25 16:44 Acetaminophen (Acetaminophen 325 Mg Tablet) 650 mg PO Q6H PRN PRN Reason: PAIN SCALE 1-3 (mild Stop: 02/03/25 16:44 Lactated Ringer's (Lactated Ringers) 1,000 mls @ 999 mls/hr IV .Q1H1M ONE Stop: 01/04/25 14:35 Last Infusion: 01/04/25 14:52 Dose: Infused Lactated Ringer's (Lactated Ringers) 1,000 mls @ 999 mls/hr IV .Q1H1M ONE Stop: 01/04/25 15:13 Last Infusion: 01/04/25 15:23 Dose: Infused Piperacillin/Tazobactam/Dextrose (Zosyn) 3.375 gm in 50 mls @ 100 mls/hr IV X1 ONE; Protocol Stop: 01/04/25 14:42 Last Infusion: 01/04/25 14:51 Dose: Infused Insulin Human Regular (Insulin Hum Regular 1 Unit/0.01 Ml (Per Unit)) 10 unit IV X1 ONE Stop: 01/04/25 13:37 Last Admin: 01/04/25 13:45 Dose: 10 unit Metoprolol Tartrate (Metoprolol Tartrate Inj 1 Mg/Ml Vial 5 Ml) 2 mg IVP X1 ONE Stop: 01/04/25 13:21 Last Admin: 01/04/25 13:32 Dose: 2 mg Metoprolol Tartrate (Metoprolol Tartrate 25 Mg Tablet) 25 mg PO X1 ONE Stop: 01/04/25 13:44 Last Admin: 01/04/25 14:20 Dose: 25 mg Morphine Sulfate (Morphine Sulf Inj 4 Mg/Ml Vial) 2 mg IVP X1 ONE Stop: 01/04/25 13:08 Last Admin: 01/04/25 13:25 Dose: 2 mg Morphine Sulfate (Morphine Sulf Inj 4 Mg/Ml Vial) 2 mg IVP X1 ONE Stop: 01/04/25 15:51 Last Admin: 01/04/25 16:16 Dose: 2 mg Nitroglycerin (Nitroglycerin 0.4 Mg/Hr Patch.Td24) 0.4 mg TOP X1 ONE Stop: 01/04/25 13:10 Ondansetron HCl (Ondansetron Inj 2 Mg/Ml Inj 2 Ml) 4 mg IVP X1 ONE; Protocol Stop: 01/04/25 13:40 Last Admin: 01/04/25 13:46 Dose: 4 mg Pantoprazole Sodium (Pantoprazole 40 Mg Tablet) 40 mg PO X1 ONE Stop: 01/04/25 14:18 Last Admin: 01/04/25 14:27 Dose: 40 mg Assessment & Plan Plan Mr. Page is a 44-year-old male with past medical history of type 2 diabetes complicated by peripheral neuropathy and gastroparesis, previously hospitalized for DKA, IBS, diverticulosis, cannabis hyperemesis syndrome, A-fib, CVA, factor V Leiden deficiency, hypertension, peptic ulcer disease, depression, anxiety who presented to the ED on 01/04 with intractable nausea and nonbloody nonbilious vomiting x 3 days. Admitted for HHS, sepsis 2/2 unknown source. # Hyperosmolar hyperglycemic state # Uncontrolled T2DM, insulin-dependent # Noncompliance # Gastroparesis # Peripheral neuropathy Initial presentation: Intractable nonbloody nonbilious vomiting x 3 days, constipation, chest and abdominal pain Hx of DKA requiring hospitalization Fingerstick glucose 396 -> 589 -> 525 -> 175 ABG 7.4/30 CO2/78 O2 bicarb 32 Anion gap 18 --> 13 Serum osm 295 BHB 1.5 UA 3+ protein, 4+ glucose, 1+ ketone, 2+ blood, 4 RBC. A1c 11.8 Given Regular 10 U, 2L LR in ED Plan: - NPO - Reglan 10 IV q6h PRN - SSI q6h, blood glucose checks q6h - CTM K with daily CMP - Repleat K PRN. Pending repeat BMP at 01:00 01/05 # SIRS Afebrile. Tachycardic to 140s, tachypneic to 16 WBC 33.2 - most likely 2/2 reactive End organ damage: LIZZIE, BUN 31, creatinine 2 (baseline ~1.2) No known source Lactic acid 4.2 -> 3.2 CRP 2, Pro-Amol 0.51 Gallbladder ultrasound unremarkable, no CBD dilation Chest x-ray unremarkable Received Zosyn 3.375 g IV x1, 2L LR (>30 cc/kg IVF) in ED Most likely reactive i/s/o HHS, dehydration 2/2 N/V Plan: - Pending blood cx - Consider CT a/p with contrast once LIZZIE resolved if sx persist - CTM clinical sx and correlate with labs, vitals #Acute Kidney Injury BUN 31, creatinine 2 (baseline ~1.2) Given 2L LR in ED Plan: - CTM with daily CMP #Aytipical Chest pain vs. -resolved #Costochondritis vs. - improving #Afib, rate controlled Troponin unremarkable EKG is show no evidence of acute ST or T wave changes however the EKG was poor quality Pt complains of pain in the epigastric region, denies substernal chest pain, denies diaphoresis, denies the pain radiating anywhere. 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 Malia Nielsen and Dr. Julianna Medina MD PGY1
[2025-01-04] MEDS: ACETAMINOPHEN 325 MG TABLET 650 MG PO (18:19)
--- NOTE | 2025-01-04 18:40 | PC.NURSE ---
pt arrived to floor from ED
[2025-01-04] MEDS: POTASSIUM CHL 10 mEq IVPB 10 MEQ/100 ML BAG 100 MEQ IV ×2 (19:13→22:29)
[2025-01-04 19:22] LABS: Reflex Lactate? Y
[2025-01-04 19:41] LABS: Lactate (Lactic Acid) 1.3 mMol/L (0.4-2.0)
[2025-01-04] MEDS: APIXABAN 2.5 MG TABLET 5 MG PO (21:10)
[2025-01-04] MEDS: PANTOPRAZOLE 20 MG TABLET PO (21:10)
[2025-01-05] VITALS (9 sets, daily range): BP systolic 115–171; BP diastolic 80–105; PULSE 85–115; RESP 16–20; TEMP 36.2–36.9; O2SAT 95–99
[2025-01-05] MEDS: POTASSIUM CHL 10 mEq IVPB 10 MEQ/100 ML BAG 100 MEQ IV ×4 (01:08→05:10)
[2025-01-05 01:14] LABS: Anion Gap 10 (7-16); BUN/Creatinine Ratio 19 Ratio (12-20); Blood Urea Nitrogen 25 mg/dL (9-23); Calcium 9.0 mg/dL (8.3-10.6); Carbon Dioxide 34.0 mMol/L (20.0-31.0); Chloride 93 mMol/L (98-107); Creatinine (Component) 1.3 mg/dL (0.6-1.3); Estimated Creatinine Clearance 60.7 mL/min (>60); Glucose 96 mg/dL (74-106); Osmolality,Calculated 278 (275-295); Potassium 3.1 mMol/L (3.4-5.1); Sodium 137 mMol/L (136-145); eGFR > 60 See Note
[2025-01-05 05:08] LABS: Basophils # (Auto) 0.1 Thou/mm3 (0.0-0.2); Basophils % (Auto) 0 % (0-2.5); Eosinophils # (Auto) 0.1 Thou/mm3 (0.0-0.5); Eosinophils % (Auto) 0 % (0-10); Hematocrit 44.4 % (41.0-53.0); Hemoglobin 15.3 g/dL (13.5-16.0); Immature Granulocytes Auto 0.28 Thou/mm3 (0.00-0.00); Lymphocytes # (Auto) 4.4 Thou/mm3 (1.0-4.8); Lymphocytes % (Auto) 13 % (10-50); Mean Corpuscular HGB Conc 34.5 g/dl (31.0-37.0); Mean Corpuscular Hemoglobin 28.3 pg (25.0-35.0); Mean Corpuscular Volume 82 fL (80-100); Monocytes # (Auto) 3.1 Thou/mm3 (0.0-0.8); Monocytes % (Auto) 9 % (0-12); Neutrophils # (Auto) 26.5 Thou/mm3 (1.8-7.7); Neutrophils % (Auto) 77 % (37-80); Nucleated Red Blood Cell # 0.00 Thou/mm3 (0.00-0.00); Nucleated Red Blood Cell % 0 /100 WBC (0); Platelet Count 316 Thou/mm3 (140-440); RDW Standard Deviation 41.7 fL (35.1-43.9); Red Blood Count 5.40 Miln/mm3 (4.50-5.90); White Blood Count 34.4 Thou/mm3 (3.8-10.6)
[2025-01-05 06:07] LABS: Alanine Aminotransferase 14 U/L (10-49); Albumin, Serum 4.1 gm/dL (3.5-5.0); Albumin/Globulin Ratio 1.7 (1.2-2.2); Alkaline Phosphatase 121 U/L (46-116); Anion Gap 13 (7-16); Aspartate Amino Transferase 21 U/L (0-34); BUN/Creatinine Ratio 21 Ratio (12-20); Bilirubin,Total 0.6 mg/dL (0.3-1.2); Blood Urea Nitrogen 27 mg/dL (9-23); Calcium 9.0 mg/dL (8.3-10.6); Calcium (Corrected) 9.0 mg/dL (8.5-10.1); Carbon Dioxide 32.2 mMol/L (20.0-31.0); Cardiac Risk Estimate 7.0 RATIO (4.0-6.7); Chloride 94 mMol/L (98-107); Cholesterol 323 mg/dL (132-200); Creatinine (Component) 1.3 mg/dL (0.6-1.3); Estimated Creatinine Clearance 60.7 mL/min (>60); Globulin 2.4 gm/dL (2.3-3.5); Glucose 70 mg/dL (74-106); HDL Cholesterol 46 mg/dL (40-60); LDL Cholesterol,Calculated 247 mg/dL (0-130); Magnesium 1.6 mg/dL (1.6-2.6); Osmolality,Calculated 280 (275-295); Phosphorous 3.5 mg/dL (2.4-5.1); Potassium 3.3 mMol/L (3.4-5.1); Sodium 139 mMol/L (136-145); Total Protein 6.5 gm/dL (5.7-8.2); Triglycerides 148 mg/dL (30-150); eGFR > 60 See Note
[2025-01-05] MEDS: METOCLOPRAMIDE INJ 5 MG/ML VIAL 2 ML 10 MG IVP (06:22)
[2025-01-05] MEDS: Magnesium Sulfate 4 GM Ivpb 4 GM/50 ML BAG IV (08:55)
[2025-01-05] MEDS: METOPROLOL SUCCINATE XL 25 MG TABCR PO (08:55)
[2025-01-05] MEDS: SENNA/DOCUSATE SOD 1 TAB TABLET PO (08:56)
[2025-01-05] MEDS: PANTOPRAZOLE 20 MG TABLET PO ×2 (08:56→20:03)
[2025-01-05] MEDS: APIXABAN 2.5 MG TABLET 5 MG PO ×2 (08:56→20:03)
--- NOTE | 2025-01-05 10:02 | ESPR_ITS ---
<Statement entered by Suyapa Levine MD - 01/10/25 15:21> I reviewed above note and agree with findings and plans. I have also personally examined the patient with medicine team and went over assessment and plan with medical team including consultant intern and resident physician. <Statement entered by Jane Nielsen MD - 01/05/25 22:16> Overnight team reported pt had urinary retention and 1.2 L of urine was taken out via straight cath. Pt is seen at bedside, continues to complain of Nausea and vomiting and abdominal pain. Pt states he is allergic to norco, morphine and tramadol doesn't work and is requesting only dilaudid. BG is controlled. Repeat labs show hypokalemia, will replete electrolytes. Pt leukocyte count is chronically elevated, as CT abdomen pelvis is negative. Pt will need to follow up outpatient with long distance operator for further work up. Patient was seen and examined by me personally. I have directly supervised and reviewed documentation by the team resident and agree with its findings. ------- Plan of care was discussed with the attending, Dr. Julianna Nielsen, PGY-2 Documentation for date of: 01/05/25 Subjective Subjective Interval history: * Patient seen and examined at bedside. * Blood cultures pending. * White count 34.4 and stable, similar to previous admissions. * Patient underwent multiple straight catheterizations last night, put out 1.2 L on 1 occasion and 300 mL on another occasion. Will order Marinelli. * Potassium 3.3, received 60 mill EQ's overnight, will repeat potassium. * Echo pending. * Started amlodipine for hypertension. * CT abdomen pelvis negative. Exam Vital Signs Temp Pulse Resp BP Pulse Ox O2 Del Method 98.5 F 102 H 20 171/105 H 95 Room Air 01/05/25 08:00 01/05/25 08:55 01/05/25 08:00 01/05/25 08:55 01/05/25 08:00 01/05/25 08:00 Narrative Exam General: Awake and in no acute distress. Conversational and non-toxic appearing. Neurologic: GCS 15. Alert and oriented x3, no gross neurological deficit, and patient able to move all 4 extremities. HEENT: Normocephalic, atraumatic, mucous membranes moist. Pupils reactive to light. Heart: Regular rate and rhythm, normal S1 and S2, no murmurs. Lungs: Clear to auscultation bilaterally with no wheezing or crackles. Abdomen: Tenderness to palpation in the epigastric region. No guarding or rebound tenderness. Extremities: No edema. 2+ radial and dorsalis pedis pulses bilaterally. Skin: Warm. Dry. No rash or ecchymoses. Objective Labs 01/05/25 03:54 01/05/25 10:05 Labs: Laboratory Results - last 24 hr 01/04/25 01/04/25 01/04/25 13:21 13:48 14:15 WBC 33.2 H RBC 5.90 Hgb 16.8 H Hct 47.7 MCV 81 MCH 28.5 MCHC 35.2 RDW Std Deviation 40.4 Plt Count 376 Neut % (Auto) 85 H Lymph % (Auto) 8 L [place] % (Auto) 6 Eos % (Auto) 0 Baso % (Auto) 0 Neut # (Auto) 28.2 H Lymph # (Auto) 2.5 [place] # (Auto) 2.1 H Eos # (Auto) 0.0 Baso # (Auto) 0.1 Immature Gran # (Auto) 0.36 H Absolute Nucleated RBC 0.00 Immature Gran % 1 H Nucleated RBC % 0 ESR 45 H PT 10.7 INR 1.0 APTT 26.5 D-Dimer < 250 Puncture Site ABG pH ABG pCO2 ABG pO2 ABG HCO3 ABG O2 Saturation ABG Base Excess FiO2 Sodium 131 L Potassium 3.6 Chloride 81 L Carbon Dioxide 32.0 H Anion Gap 18 H BUN 31 H Creatinine 2.0 H Estim Creat Clear Calc 39.5 L eGFR 42 L BUN/Creatinine Ratio 16 Glucose 566 H* Estimated Ave Glu mg/dL 292 H Hemoglobin A1c 11.8 H Calculated Osmolality 295 Lactic Acid 4.2 H* Calcium 10.4 Corrected Calcium 10.4 H Phosphorus Magnesium 1.7 Total Bilirubin 0.6 AST 19 ALT 18 Alkaline Phosphatase 151 H Total Creatine Kinase 101 Troponin I 0.028 C-Reactive Prot, Quant 2.0 H B-Natriuretic Peptide 68 Total Protein 8.0 Albumin 4.9 Globulin 3.1 Albumin/Globulin Ratio 1.6 Triglycerides Cholesterol LDL Cholesterol, Calc HDL Cholesterol Cholesterol/HDL Ratio Amylase 35 Lipase 42 Beta-Hydroxybutyrate/Acetoacetate 1.5 H Procalcitonin 0.51 H TSH 0.74 Ur Collection Type Clean Catch Urine Color Lt-Yellow Urine Clarity Clear Urine pH 6.5 Ur Specific [place] 1.029 Urine Protein 3+ A Urine Glucose (UA) 4+ A Urine Ketones 1+ A Urine Blood 2+ A Urine Nitrite Negative Urine Bilirubin Negative Urine Urobilinogen (Auto) Negative Ur Leukocyte Esterase Negative Urine RBC 4 H Urine WBC 3 Ur Squamous Epith Cells 0 Urine Bacteria None Hyaline Casts < 1 Ur Culture Indicated? Not Indicated Urine Opiates Screen Positive A Urine Fentanyl Screen Negative Ur Barbiturates Screen Negative U Amphetamin/Meth Scrn Negative U Benzodiazepines Scrn Negative U Cocaine Metab Screen Negative U Marijuana (THC) Screen Positive A Ethyl Alcohol < 10.0 Influenza A (Rapid) Influenza B (Rapid) 01/04/25 01/04/25 01/04/25 14:26 15:31 16:20 WBC RBC Hgb Hct MCV MCH MCHC RDW Std Deviation Plt Count Neut % (Auto) Lymph % (Auto) [place] % (Auto) Eos % (Auto) Baso % (Auto) Neut # (Auto) Lymph # (Auto) [place] # (Auto) Eos # (Auto) Baso # (Auto) Immature Gran # (Auto) Absolute Nucleated RBC Immature Gran % Nucleated RBC % ESR PT INR APTT D-Dimer Puncture Site Left Radial ABG pH 7.40 ABG pCO2 20 L ABG pO2 25 L* ABG HCO3 12 L ABG O2 Saturation 44 L ABG Base Excess -12 L FiO2 21 Sodium 137 Potassium 3.0 L D Chloride 91 L Carbon Dioxide 32.9 H Anion Gap 13 BUN 30 H Creatinine 1.5 H D Estim Creat Clear Calc 52.6 L eGFR 59 L BUN/Creatinine Ratio 20 Glucose [address] Glu mg/dL Hemoglobin A1c Calculated Osmolality 285 Lactic Acid 3.2 H Calcium 9.3 Corrected Calcium 9.3 Phosphorus 4.0 Magnesium Total Bilirubin AST ALT Alkaline Phosphatase Total Creatine Kinase Troponin I C-Reactive Prot, Quant B-Natriuretic Peptide Total Protein Albumin 4.1 D Globulin Albumin/Globulin Ratio Triglycerides Cholesterol LDL Cholesterol, Calc HDL Cholesterol Cholesterol/HDL Ratio Amylase Lipase Beta-Hydroxybutyrate/Acetoacetate Procalcitonin TSH Ur Collection Type Urine Color Urine Clarity Urine pH Ur Specific [place] Urine Protein Urine Glucose (UA) Urine Ketones Urine Blood Urine Nitrite Urine Bilirubin Urine Urobilinogen (Auto) Ur Leukocyte Esterase Urine RBC Urine WBC Ur Squamous Epith Cells Urine Bacteria Hyaline Casts Ur Culture Indicated? Urine Opiates Screen Urine Fentanyl Screen Ur Barbiturates Screen U Amphetamin/Meth Scrn U Benzodiazepines Scrn U Cocaine Metab Screen U Marijuana (THC) Screen Ethyl Alcohol Influenza A (Rapid) Negative Influenza B (Rapid) Negative 01/04/25 01/05/25 01/05/25 19:32 00:43 03:54 WBC 34.4 H RBC 5.40 Hgb 15.3 Hct 44.4 MCV 82 MCH 28.3 MCHC 34.5 RDW Std Deviation 41.7 Plt Count 316 D Neut % (Auto) 77 Lymph % (Auto) 13 [place] % (Auto) 9 Eos % (Auto) 0 Baso % (Auto) 0 Neut # (Auto) 26.5 H Lymph # (Auto) 4.4 [place] # (Auto) 3.1 H Eos # (Auto) 0.1 Baso # (Auto) 0.1 Immature Gran # (Auto) 0.28 H Absolute Nucleated RBC 0.00 Immature Gran % 1 H Nucleated RBC % 0 ESR PT INR APTT D-Dimer Puncture Site ABG pH ABG pCO2 ABG pO2 ABG HCO3 ABG O2 Saturation ABG Base Excess FiO2 Sodium 137 139 Potassium 3.1 L 3.3 L Chloride 93 L 94 L Carbon Dioxide 34.0 H 32.2 H Anion Gap 10 13 BUN 25 H 27 H Creatinine 1.3 1.3 Estim Creat Clear Calc 60.7 L 60.7 L eGFR > 60 > 60 BUN/Creatinine Ratio 19 21 H Glucose [address] Glu mg/dL Hemoglobin A1c Calculated Osmolality 278 280 Lactic Acid 1.3 Calcium 9.0 9.0 Corrected Calcium 9.0 Phosphorus 3.5 Magnesium 1.6 Total Bilirubin 0.6 AST 21 ALT 14 Alkaline Phosphatase 121 H D Total Creatine Kinase Troponin I C-Reactive Prot, Quant B-Natriuretic Peptide Total Protein 6.5 Albumin 4.1 Globulin 2.4 Albumin/Globulin Ratio 1.7 Triglycerides 148 Cholesterol 323 H LDL Cholesterol, Calc 247 H HDL Cholesterol 46 Cholesterol/HDL Ratio 7.0 H Amylase Lipase Beta-Hydroxybutyrate/Acetoacetate Procalcitonin TSH Ur Collection Type Urine Color Urine Clarity Urine pH Ur Specific [place] Urine Protein Urine Glucose (UA) Urine Ketones Urine Blood Urine Nitrite Urine Bilirubin Urine Urobilinogen (Auto) Ur Leukocyte Esterase Urine RBC Urine WBC Ur Squamous Epith Cells Urine Bacteria Hyaline Casts Ur Culture Indicated? Urine Opiates Screen Urine Fentanyl Screen Ur Barbiturates Screen U Amphetamin/Meth Scrn U Benzodiazepines Scrn U Cocaine Metab Screen U Marijuana (THC) Screen Ethyl Alcohol Influenza A (Rapid) Influenza B (Rapid) ABG Interpretation ABG results: 01/04/25 15:31 ABG pH 7.40 ABG pCO2 20 L ABG pO2 25 L* ABG HCO3 12 L ABG O2 Saturation 44 L ABG Base Excess -12 L Quality Measures Quality Measures none Assessment & Plan Assessment Current Active Medications: Generic Name Dose Route Start Last Admin Trade Name Freq PRN Reason Stop Dose Admin Acetaminophen 650 mg 01/04/25 16:58 01/04/25 18:19 Acetaminophen 325 Mg Tablet PO 02/03/25 16:44 650 mg Q6H PRN Administration Fever >100.3, pain 1-3 Apixaban 5 mg 01/04/25 21:00 01/05/25 08:56 Apixaban 2.5 Mg Tablet PO 02/03/25 20:59 5 mg BID CHICHO Administration Dextrose 25 ml 01/04/25 16:51 Dextrose 50%-Water Inj 50 Ml Syringe IV 02/03/25 16:50 Q15MIN PRN BG 50-70 responsive npo pt Dextrose 50 ml 01/04/25 16:51 Dextrose 50%-Water Inj 50 Ml Syringe IV 02/03/25 16:50 Q15MIN PRN BG <50 OR BG <70 & pt unresponsive Fluoxetine HCl 20 mg 01/05/25 09:00 01/05/25 08:56 Fluoxetine Hcl 10 Mg Capsule PO 02/04/25 08:59 20 mg QDAY CHICHO Administration Glucagon 1 mg 01/04/25 16:51 Glucagon Inj 1 Mg Vial IM Q15MIN PRN BG <70, and no IV access Magnesium Sulfate 4 gm in 50 mls @ 12.5 mls/hr 01/05/25 08:17 01/05/25 08:55 Magnesium Sulfate Ivpb IV 01/05/25 12:16 12.5 mls/hr X1 ONE Administration Insulin Human Lispro 0 unit 01/04/25 17:00 01/05/25 05:18 Insulin Lispro (Admelog) 1 Unit/0.01 Ml Unit SC 02/03/25 16:59 Not Given Q6H CHICHO Protocol Metoclopramide HCl 10 mg 01/04/25 16:45 11/19/25 06:22 Metoclopramide Inj 5 Mg/Ml Vial 2 Ml IVP 02/03/25 16:44 10 mg Q6H PRN Administration NAUSEA OR VOMITING Protocol Metoprolol Succinate 25 mg 01/05/25 09:00 01/05/25 08:55 Metoprolol Succinate Xl 25 Mg Tabcr PO 02/04/25 08:59 25 mg QDAY CHICHO Administration Pantoprazole Sodium 20 mg 01/04/25 21:00 01/05/25 08:56 Pantoprazole 20 Mg Tablet PO 02/03/25 20:59 20 mg BID CHICHO Administration Sennosides 1 tab 01/05/25 09:00 01/05/25 08:56 Senna/Docusate Sod 1 Tab Tablet PO 02/04/25 08:59 1 tab QDAY CHICHO Administration Protocol Plan Summary: Mr. Page is a 44-year-old male with past medical history of type 2 diabetes complicated by peripheral neuropathy and gastroparesis, previously hospitalized for DKA, IBS, diverticulosis, cannabis hyperemesis syndrome, A-fib, CVA, factor V Leiden deficiency, hypertension, peptic ulcer disease, depression, anxiety who presented to the ED on 01/04 with intractable nausea and nonbloody nonbilious vomiting x 3 days. Admitted for HHS, sepsis 2/2 unknown source. # Hyperosmolar hyperglycemic state # Uncontrolled T2DM, insulin-dependent # Noncompliance # Peripheral neuropathy # Lactic acidosis (Resolved) # Anion gap metabolic acidosis (Resolved) * Initial presentation: Intractable nonbloody nonbilious vomiting x 3 days, constipation, chest and abdominal pain * Hx of DKA requiring hospitalization * Fingerstick glucose 396 -> 589 -> 525 -> 175 * ABG 7.4/30 CO2/78 O2, bicarb 32 * Anion gap 18 --> 13 * Lactic acid 4.2, resolved to 1.3 * Serum osm 295 * BHB 1.5 * UA 3+ protein, 4+ glucose, 1+ ketone, 2+ blood, 4 RBC. * A1c 11.8 * Given Regular 10 U, 2L LR in ED * Patient mentions that the day of admission he took his 10 units of regular insulin, though he presented with hyperglycemia Plan: * Clear liquid diet, advance as tolerated * SSI q6h, blood glucose checks q6h #Acute urinary retention * Patient had 2 straight catheterizations overnight, 1 put out 1.2 L of urine, the other put out 300 mL of urine * No definitive cause at this time, consider anticholinergic effect of fluoxetine versus noncompliance with tamsulosin Plan: * Yves #Stage II hypertension * BP 171/105 * End organ damage represented by elevated creatinine on arrival may be secondary to this issue versus septic picture with 3 out of 4 SIRS positive criteria * Currently the patient's creatinine is at his baseline, therefore this is not a hypertensive urgency or emergency Plan: * Started amlodipine 2 mg p.o. daily Reassessment: * Trend blood pressure #Hypokalemia * Potassium 3.3, received 60 mill EQ's, repeat was 3.2, received additional 40 mill EQ's * Considering the presence of recent treatment for hyperosmolar hyperglycemic state with insulin Plan: * Replete potassium Reassessment: * Follow-up daily labs # Gastroparesis # Peptic ulcer disease # Diverticulosis # IBS Plan: * Reglan 10 IV q6h PRN * Doc/senna PO daily * Pantoprazole 20 mg p.o. twice daily # SIRS * 3 out of 4 SIRS criteria on arrival: Tachycardic to 140s, tachypneic to 16, WBC 33.2, creatinine was 2.0, BUN 31, represented endorgan damage, qualifies for severe sepsis * However, patient has had a chronic elevation in WBC * Lactic acid 4.2 -> 3.2 * CRP 2, Pro-Amol 0.51 * Gallbladder ultrasound unremarkable, no CBD dilation * Chest x-ray unremarkable * Received Zosyn 3.375 g IV x1, 2L LR (>30 cc/kg IVF) in ED * Most likely reactive i/s/o HHS, dehydration 2/2 N/V * Source still unidentified, blood cultures negative, may reinforce HHS versus dehydration reactive response * CT abdomen pelvis showed a subtle enhancement 3.6 cm in the right lobe of the liver * Patient remains tachycardic, leukocytosis Plan: * Pending blood cx * Discontinued Zosyn #Acute Kidney Injury (Resolved) * BUN 31, creatinine 2 (baseline ~1.2) * Received 2L LR in ED * Resolved to a creatinine of 1.3 Plan: * CTM with daily CMP #Aytipical Chest pain vs. -resolved #Costochondritis vs. - improving #Afib, rate controlled * Troponin unremarkable * EKG showed no evidence of acute ST or T wave changes however the EKG was poor quality * Pt complained of pain in the epigastric region, denies substernal chest pain, denies diaphoresis, denies the pain radiating anywhere. * Echo performed, pending read Plan: * Eliquis 5 mg PO BID (home med) * Metoprolol succinate XL 25 mg PO daily (home med) #Hx CVA #Factor V Leiden deficiency * No residual deficits * Patient mentions that he had not appointment with a long distance operator, did not follow-up * Cholesterol elevated to over 300 * LDL 247 Plan: * Eliquis 5 mg PO BID (home med) * Atorvastatin 40 mg daily # Cannabis hyperemesis syndrome * UDS positive opiates, THC Plan: * [employer] pt on cessation of cannabis #Depression #Anxiety Plan: * Fluoxetine 20 mg PO daily (home med) Checklist Dispo: Admit to tele for HHS, given a one-time dose of oxycodone for epigastric pain, Marinelli inserted, started amlodipine for hypertension, CT abdomen negative minus a subtle liver enhancement, will work with PT tomorrow. Lines: PIV Marinelli: Present Diet: Clear liquid diet as tolerated Bowel Reg: doc/senna chicho VTE ppx: Eliquis 5 mg PO BID GI ppx: Pantoprazole 20 mg PO BID Pain mgmt: Tylenol PO PRN Code status: full Patient was seen and discussed with my attending physician Dr. Julianna GRUBBS and my senior resident Dr. Morales GRUBBS PGY-2. Francois Caballero DO PGY-1.
[2025-01-05 10:38] LABS: Albumin, Serum 4.1 gm/dL (3.5-5.0); Anion Gap 10 (7-16); BUN/Creatinine Ratio 23 Ratio (12-20); Blood Urea Nitrogen 27 mg/dL (9-23); Calcium 8.9 mg/dL (8.3-10.6); Calcium (Corrected) 8.9 mg/dL (8.5-10.1); Carbon Dioxide 31.5 mMol/L (20.0-31.0); Chloride 95 mMol/L (98-107); Creatinine (Component) 1.2 mg/dL (0.6-1.3); Estimated Creatinine Clearance 65.8 mL/min (>60); Glucose 85 mg/dL (74-106); Osmolality,Calculated 276 (275-295); Phosphorous 3.5 mg/dL (2.4-5.1); Potassium 3.2 mMol/L (3.4-5.1); Sodium 136 mMol/L (136-145); eGFR > 60 See Note
--- NOTE | 2025-01-05 10:59 | PC.SS ---
Patient is alert/oriented. Patient was able to verify demographics. Patient states he lives alone in [place], [place]. Patient states he was here visiting. SS inquired what the discharge plan is and it remains to return back home. Patient's family resides here. Patient as admitted for hyperglycemic state. Patient is independent with ADL's. Patient states his p.c.p. is in [place], and is Dr. Thompson. Last appt was a month ago. Pharmacy: [facility]. Patient states he also follows a Neurologist and Urologist out of town. Patient continues to complain about pain. Alt medical decision maker: Mother, Sylvia Page,
--- NOTE | 2025-01-05 11:03 | XR_ITS ---
Examination: CT abdomen with intravenous contrast CT pelvis with intravenous contrast 2-D coronal reconstructions 2-D sagittal reconstructions Date and time of exam: January 05, 2025, 1403 hours INDICATIONS: Abdominal pain and leukocytosis today COMPARISON: September 12, 2023. CTDI: vol (mGy) 4.57 DLP: (mGycm) 271 Technique: Multiple axial sections of the abdomen and pelvis have been obtained. 64 slice high-resolution scanner used. 3 mm axial sections have been obtained, post intravenous injection 60 cc Isovue 370 2-D sagittal, coronal reconstructions obtained. Low dose protocols were performed. One or more of the following dose reduction techniques were used; automated exposure control, adjustment of the mA and/or KV according to patient size, use of iterative reconstruction technique. Findings: Subtle enhancement in the right lobe of the liver, 3.6 cm on axial image 56 Spleen not enlarged No pancreatic mass Aorta is not enlarged No pancreatic mass Mild nodular thickening left adrenal gland No renal or ureteral calculi No bowel obstruction Normal appendix Colonic diverticulosis, no diverticulitis Urinary bladder contracted around a Marinelli catheter No prostatomegaly Moderate osteopenia IMPRESSION: Subtle enhancement 3.6 cm in the right lobe of the liver, recommend MRI abdomen liver follow-up pre and postcontrast to exclude true hepatic lesion
[2025-01-05] MEDS: oxyCODONE HCL 5 MG IR TAB PO (14:46)
[2025-01-05] MEDS: LOSARTAN POTASSIUM 25 MG TABLET 100 MG PO (15:33)
[2025-01-05] MEDS: ATORVASTATIN CALCIUM 20 MG TABLET 40 MG PO (15:33)
[2025-01-05] MEDS: INSULIN LISPRO (AdmeLOG) 1 UNIT/0.01 ML UNIT SC (17:30)
[2025-01-05 18:43] LABS: Potassium 4.1 mMol/L (3.4-5.1)
[2025-01-05] MEDS: ACETAMINOPHEN 325 MG TABLET 650 MG PO (20:00)
[2025-01-06] VITALS: BP 127/85; PULSE 80; PULSE 97; RESP 12; TEMP 36.8; O2SAT 99
[2025-01-06 04:00] VITALS: BP 138/99; PULSE 77; PULSE 97; RESP 13; TEMP 36.7; O2SAT 99
[2025-01-06 05:44] LABS: Basophils # (Auto) 0.1 Thou/mm3 (0.0-0.2); Basophils % (Auto) 1 % (0-2.5); Eosinophils # (Auto) 0.1 Thou/mm3 (0.0-0.5); Eosinophils % (Auto) 1 % (0-10); Hematocrit 43.8 % (41.0-53.0); Hemoglobin 14.8 g/dL (13.5-16.0); Immature Granulocytes Auto 0.08 Thou/mm3 (0.00-0.00); Lymphocytes # (Auto) 3.7 Thou/mm3 (1.0-4.8); Lymphocytes % (Auto) 24 % (10-50); Mean Corpuscular HGB Conc 33.8 g/dl (31.0-37.0); Mean Corpuscular Hemoglobin 27.7 pg (25.0-35.0); Mean Corpuscular Volume 82 fL (80-100); Monocytes # (Auto) 1.7 Thou/mm3 (0.0-0.8); Monocytes % (Auto) 11 % (0-12); Neutrophils # (Auto) 9.5 Thou/mm3 (1.8-7.7); Neutrophils % (Auto) 63 % (37-80); Nucleated Red Blood Cell # 0.00 Thou/mm3 (0.00-0.00); Nucleated Red Blood Cell % 0 /100 WBC (0); Platelet Count 263 Thou/mm3 (140-440); RDW Standard Deviation 40.9 fL (35.1-43.9); Red Blood Count 5.34 Miln/mm3 (4.50-5.90); White Blood Count 15.2 Thou/mm3 (3.8-10.6)
[2025-01-06 06:00] VITALS: BMI 22.1
[2025-01-06 06:14] LABS: Alanine Aminotransferase 11 U/L (10-49); Albumin, Serum 3.8 gm/dL (3.5-5.0); Albumin/Globulin Ratio 1.7 (1.2-2.2); Alkaline Phosphatase 108 U/L (46-116); Anion Gap 8 (7-16); Aspartate Amino Transferase 19 U/L (0-34); BUN/Creatinine Ratio 13 Ratio (12-20); Bilirubin,Total 0.7 mg/dL (0.3-1.2); Blood Urea Nitrogen 16 mg/dL (9-23); Calcium 8.8 mg/dL (8.3-10.6); Calcium (Corrected) 9.0 mg/dL (8.5-10.1); Carbon Dioxide 28.8 mMol/L (20.0-31.0); Chloride 99 mMol/L (98-107); Creatinine (Component) 1.2 mg/dL (0.6-1.3); Estimated Creatinine Clearance 65.8 mL/min (>60); Globulin 2.3 gm/dL (2.3-3.5); Glucose 123 mg/dL (74-106); Magnesium 2.0 mg/dL (1.6-2.6); Osmolality,Calculated 274 (275-295); Phosphorous 2.8 mg/dL (2.4-5.1); Potassium 3.3 mMol/L (3.4-5.1); Sodium 136 mMol/L (136-145); Total Protein 6.1 gm/dL (5.7-8.2); eGFR > 60 See Note
[2025-01-06] MEDS: ACETAMINOPHEN 325 MG TABLET 650 MG PO (07:42)
--- NOTE | 2025-01-06 07:51 | PD.RESPRO ---
Documentation for date of: 01/06/25 Subjective Subjective Interval history: NAEO. Patient continues to report right upper and lower abdominal pain, improved after hendrickson inserted. Patient reports that he takes Tamsulosin 0.4 mg PO daily at home to help with urination. He denies hx BPH. No N/V, tolerating advancing diet. Had 1 loose BM yesterday, able to walk to bathroom unassisted. Exam Vital Signs Temp Pulse Resp BP Pulse Ox O2 Del Method 98.0 F 77 13 138/99 H 99 Room Air 01/06/25 04:00 01/06/25 04:00 01/06/25 04:00 01/06/25 04:00 01/06/25 04:00 01/06/25 04:00 Narrative Exam General: No acute distress, well nourished Eye: PERRL, EOMI, erythematous sclera left eye, no pain on EOM HENT: Normocephalic, atraumatic, normal hearing, moist oral mucosa Neck: Supple, non-tender, no JVD, no lymphadenopathy Lungs: Clear to auscultation bilaterally, non-labored respirations, symmetric chest rise, no use of accessory muscles Heart: Normal S1 and S2, no S3 or S4 appreciated. Normal rate and regular rhythm, no murmurs, rubs gallops, or edema. Peripheral pulses intact bilaterally, capillary refill brisk distally Abdomen: Soft, TTP RUQ and RLQ, non-distended, normal bowel sounds. No guarding or rebound tenderness. Musculoskeletal: Normal range of motion and strength, no tenderness or swelling. No tenderness to palpation or reproducible chest pain upon palpation to useSkin: Skin is warm, dry, no rashes or lesions. Tattoos appreciated. No open wounds or areas of erythema appreciated. Neurologic: Alert, awake and oriented x3. CN II-XII grossly intact. No neuro deficits appreciated Psychiatric: Cooperative, appropriate mood and affect Objective Labs 01/06/25 04:54 01/06/25 04:54 Labs: Laboratory Results - last 24 hr 01/05/25 01/05/25 01/06/25 10:05 18:18 04:54 WBC 15.2 H D RBC 5.34 Hgb 14.8 Hct 43.8 MCV 82 MCH 27.7 MCHC 33.8 RDW Std Deviation 40.9 Plt Count 263 D Neut % (Auto) 63 Lymph % (Auto) 24 [place] % (Auto) 11 Eos % (Auto) 1 Baso % (Auto) 1 Neut # (Auto) 9.5 H Lymph # (Auto) 3.7 [place] # (Auto) 1.7 H Eos # (Auto) 0.1 Baso # (Auto) 0.1 Immature Gran # (Auto) 0.08 H Absolute Nucleated RBC 0.00 Immature Gran % 1 H Nucleated RBC % 0 Sodium 136 136 Potassium 3.2 L 4.1 D 3.3 L D Chloride 95 L 99 Carbon Dioxide 31.5 H 28.8 Anion Gap 10 8 BUN 27 H 16 Creatinine 1.2 1.2 Estim Creat Clear Calc 65.8 65.8 eGFR > 60 > 60 BUN/Creatinine Ratio 23 H 13 Glucose 85 123 H Calculated Osmolality 276 274 L Calcium 8.9 8.8 Corrected Calcium 8.9 9.0 Phosphorus 3.5 2.8 Magnesium 2.0 Total Bilirubin 0.7 AST 19 ALT 11 Alkaline Phosphatase 108 Total Protein 6.1 Albumin 4.1 3.8 Globulin 2.3 Albumin/Globulin Ratio 1.7 ABG Interpretation ABG results: 01/04/25 15:31 ABG pH 7.40 ABG pCO2 20 L ABG pO2 25 L* ABG HCO3 12 L ABG O2 Saturation 44 L ABG Base Excess -12 L Quality Measures Quality Measures none Assessment & Plan Assessment Current Active Medications: Generic Name Dose Route Start Last Admin Trade Name Freq PRN Reason Stop Dose Admin Acetaminophen 650 mg 01/04/25 16:58 01/06/25 07:42 Acetaminophen 325 Mg Tablet PO 02/03/25 16:44 650 mg Q6H PRN Administration Fever >100.3, pain 1-3 Amlodipine Besylate 10 mg 01/05/25 12:00 01/05/25 12:53 Amlodipine Besylate 5 Mg Tablet PO 02/04/25 11:59 10 mg QDAY CHICHO Administration Apixaban 5 mg 01/04/25 21:00 01/05/25 20:03 Apixaban 2.5 Mg Tablet PO 02/03/25 20:59 5 mg BID CHICHO Administration Atorvastatin Calcium 40 mg 01/05/25 15:15 01/05/25 15:33 Atorvastatin Calcium 20 Mg Tablet PO 02/04/25 15:14 40 mg QDAY CHICHO Administration Dextrose 25 ml 01/04/25 16:51 Dextrose 50%-Water Inj 50 Ml Syringe IV 02/03/25 16:50 Q15MIN PRN BG 50-70 responsive npo pt Dextrose 50 ml 01/04/25 16:51 Dextrose 50%-Water Inj 50 Ml Syringe IV 02/03/25 16:50 Q15MIN PRN BG <50 OR BG <70 & pt unresponsive Fluoxetine HCl 20 mg 01/05/25 09:00 01/05/25 08:56 Fluoxetine Hcl 10 Mg Capsule PO 02/04/25 08:59 20 mg QDAY CHICHO Administration Glucagon 1 mg 01/04/25 16:51 Glucagon Inj 1 Mg Vial IM Q15MIN PRN BG <70, and no IV access Insulin Human Lispro 0 unit 01/04/25 17:00 01/06/25 04:46 Insulin Lispro (Admelog) 1 Unit/0.01 Ml Unit SC 02/03/25 16:59 Not Given Q6H CHICHO Protocol Losartan Potassium 100 mg 01/05/25 15:15 01/05/25 15:33 Losartan Potassium 25 Mg Tablet PO 02/04/25 15:14 100 mg QDAY CHICHO Administration Metoclopramide HCl 10 mg 01/04/25 16:45 01/05/25 06:22 Metoclopramide Inj 5 Mg/Ml Vial 2 Ml IVP 02/03/25 16:44 10 mg Q6H PRN Administration NAUSEA OR VOMITING Protocol Metoprolol Succinate 25 mg 01/05/25 09:00 01/05/25 08:55 Metoprolol Succinate Xl 25 Mg Tabcr PO 02/04/25 08:59 25 mg QDAY CHICHO Administration Pantoprazole Sodium 20 mg 01/04/25 21:00 01/05/25 20:03 Pantoprazole 20 Mg Tablet PO 02/03/25 20:59 20 mg BID CHICHO Administration Sennosides 1 tab 01/05/25 09:00 01/05/25 08:56 Senna/Docusate Sod 1 Tab Tablet PO 02/04/25 08:59 1 tab QDAY CHICHO Administration Protocol Plan Mr. Page is a 44-year-old male with past medical history of type 2 diabetes complicated by peripheral neuropathy and gastroparesis, previously hospitalized for DKA, IBS, diverticulosis, cannabis hyperemesis syndrome, A-fib, CVA, factor V Leiden deficiency, hypertension, peptic ulcer disease, depression, anxiety who presented to the ED on 01/04 with intractable nausea and nonbloody nonbilious vomiting x 3 days. Admitted for HHS, sepsis 2/2 unknown source. # Hyperosmolar hyperglycemic state # Uncontrolled T2DM, insulin-dependent # Noncompliance # Gastroparesis # Peripheral neuropathy Initial presentation: Intractable nonbloody nonbilious vomiting x 3 days, constipation, chest and abdominal pain Hx of DKA requiring hospitalization Fingerstick glucose 396 -> 589 -> 525 -> 175 ABG 7.4/30 CO2/78 O2 bicarb 32 Anion gap 18 --> 13 Serum osm 295 BHB 1.5 UA 3+ protein, 4+ glucose, 1+ ketone, 2+ blood, 4 RBC. A1c 11.8 Given Regular 10 U, 2L LR in ED Plan: - Clear liquid diet, advance as tolerated - Reglan 10 IV q6h PRN - SSI q6h, blood glucose checks q6h #Electrolyte abnormalities #Hypokalemia i/s/o insulin administration for HHS Plan: - Repelte PRN - CTM with daily CMP - Repeat renal panel at noon #Acute urinary retention Plan: - hendrickson in placed - Tamsulosin 0.4 mg PO daily (home med) # SIRS - resolved Afebrile. Tachycardic to 140s, tachypneic to 16. WBC 33.2 - most likely 2/2 reactive --> now downtrending End organ damage: LIZZIE, BUN 31, creatinine 2 (baseline ~1.2) - resolved No known source Lactic acid 4.2 -> 3.2 CRP 2, Pro-Amol 0.51 Blood cx NGTD at 24h Gallbladder ultrasound unremarkable, no CBD dilation CT a/p w/: Right liver lobe lesion 3.6 cm, enhancing. Colonic diverticulosis. Chest x-ray unremarkable Received Zosyn 3.375 g IV x1, 2L LR (>30 cc/kg IVF) in ED Most likely reactive i/s/o HHS, dehydration 2/2 N/V Plan: - Pending blood cx (final) - CTM clinical sx and correlate with labs, vitals #Stage II hypertension Plan: - Amlodipine 10 mg PO daily - CTM vitals #Acute Kidney Injury - resolved BUN 31, creatinine 2 (baseline ~1.2) Given 2L LR in ED Plan: - CTM with daily CMP #Aytipical Chest pain vs. -resolved #Costochondritis vs. - improving #Afib, rate controlled Troponin unremarkable EKG is show no evidence of acute ST or T wave changes however the EKG was poor quality Pt complains of pain in the epigastric region, denies substernal chest pain, denies diaphoresis, denies the pain radiating anywhere. Plan: - Eliquis 5 mg PO BID (home med) - Metoprolol succinate XL 25 mg PO daily (home med) - Pending repeat EKG - Pending echo read # Hx CVA # Factor V Leiden deficiency # Hyperlipidemia No residual deficits Lipid panel: Cholesterol 323, LDL 247. Triglycerides and HDL WNL. Plan: - Eliquis 5 mg PO BID (home med) - Atorvastatin 40 mg PO daily # Peptic ulcer disease # Diverticulosis # IBS # Enhancing right liver lobe lesion 3.6 cm Currently constipated Gallbladder ultrasound unremarkable, no CBD dilation CT a/p w/: Right liver lobe lesion 3.6 cm, enhancing. Colonic diverticulosis. 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 Julianna Medina MD PGY1
[2025-01-06 08:00] VITALS: BP 126/89; PULSE 80; RESP 18; TEMP 36.7; O2SAT 98
--- NOTE | 2025-01-06 08:05 | EKG_ITS ---
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
--- NOTE | 2025-01-06 09:35 | PC.NURSE ---
PATIENT HAS BEEN CALLING ME INAPPROPRIATE WORDS SINCE I WALKED INTO THE ROOM. HE IS UPSET HE IS NOT GETTING PAIN MEDICATION. I CALLED THE DOCTOR TO NOTIFY THEM HE WANTS TO GO AMA. DOCTORS ARE GOING TO PUT THE DC ORDERS
--- NOTE | 2025-01-06 09:39 | ESDS_ITS ---
<Statement entered by Suyapa Levine MD - 01/18/25 08:30> I reviewed above note and agree with findings and plans. I have also personally examined the patient with medicine team and went over assessment and plan with medical team including internal consultant and resident physician. Planned Discharge Date 01/06/25 DS: Providers Provider Date of admission: 01/04/25 16:45 Primary care physician: Physician No Primary/Family Admitting Provider: Suyapa Levine MD Attending Provider on Admission: Suyapa Levine MD Consults: 01/05/25 15:04 Referral Physical Therapy Routine Comment: Physician Instructions: Attending Provider on DC: Dr. Suyapa Levine Discharging Provider: Kori Medina MD DS: Diagnosis Problem List Completed Was Problem List Reviewed/Reconciled?: Yes Hospital Course Hospital Course Hospital course: Hospital Course Mr. Page is a 44-year-old male with past medical history of uncontrolled insulin dependent type 2 diabetes (a1c 11.8) complicated by peripheral neuropathy and gastroparesis, previously hospitalized for DKA, IBS, diverticulosis, cannabis hyperemesis syndrome, A-fib, CVA, factor V Leiden deficiency, hypertension, peptic ulcer disease, depression, anxiety who presented to the ED on 01/04 with LUQ abdominal pain, atypical chest pain, and intractable nausea and nonbloody nonbilious vomiting x 3 days most likely 2/2 gastroparesis. In the ED patient was afebrile, tachycardic, tachypneic, and hypertensive with leukocytosis 33.2, meeting SIRS criteria with end organ damage of mild LIZZIE with Cr 2. CRP 2, Pro-Amol 0.51. Zosyn IV x1 given in ED for empiric management of SIRS. No source of infection was identified. UDS positive opiates, THC. Troponin, D-dimer, BNP, amylase, lipase, TSH, CK, alcohol level, flu unremarkable. CXR unremarkable, gallbladder ultrasound unremarkable, no CBD dilation. CT a/p showed enhancing right liver lobe lesion 3.6 cm; colonic diverticulosis. Blood cultures were NGTD at 24 hours. Labs consistent with hyperosmolar hyperglycemic state, corrected with insulin Regular 10U and 2L LR in ED. Lactic acid elevation also resolved with IVF. Once anion gap closed and blood glucose returned to normal limits, patient was further managed on sliding scale insulin and potassium repletion as needed. Gastroparesis was managed with Reglan PRN. Patient was initially NPO and tolerated advancing diet. LIZZIE resolved with IVF. Leukocytosis downtrending to 15.2. Patient continued to ask for IV pain medications for abdominal pain, and he was repeatedly informed that opioids would worsen the gastroparesis. Additionally, previous documentation reports allergies to morphine and [place]. Pain was managed with PO and IV Tylenol. On 01/06 patient threatened to leave AMA if he did not get the pain medications he was asking for; patient refused all medications on 01/06 in the AM. Given that patient was hemodynamically stable, HHS resolved, and patient refused to take potassium PO repletion, patient was medically cleared for discharge. Given patient's history of afib, rate controlled on metoprolol succinate XL 25 mg PO daily and anticoag with Eliquis 5 mg PO BID, echocardiogram was ordered, pending final read by Dr. Cassidy. EKG showed NSR with HR 86, QTc 487. BP was controlled with Losartan 100 mg PO daily. Discontinued home lisinopril. Patient to follow up with PCP for uncontrolled diabetes and enhancing liver lesion on CT. Patient hemodynamically stable. Labs reviewed. Patient stable and medically cleared for discharge. Diagnoses # Hyperosmolar hyperglycemic state - resolved # Uncontrolled T2DM, insulin-dependent (A1C 11.8) # Noncompliance # Gastroparesis # Peripheral neuropathy # SIRS - resolved #Acute Kidney Injury #Aytipical Chest pain vs. -resolved #Costochondritis vs. - improving #Afib, rate controlled #Hx CVA # Factor V Leiden deficiency # Prolonged QTc (487) # Peptic ulcer disease # Diverticulosis # IBS # Cannabis hyperemesis syndrome #Depression #Anxiety Discharge Instructions - Follow up with PCP within 1 week of discharge, if you do not have a primary care physician you can come see us at the [facility] by calling [phone] - You have been prescribed a blood thinner, which can cause bleeding so please be careful with falls, if you have an injury or fall please immediately go to the ED - Stop taking Lisinopril - Monitor blood pressure daily and keep a journal of BP measurements in the morning. Bring the BP log to your PCP appointment - Please continue to take your insulin and keep a journal of blood sugars with each meal. Bring the blood sugar log to your PCP appointment - Can take Reglan as needed for nausea and vomiting - Continue rest of medications as previously prescribed - Return to the ED or call EMS if symptoms return and/or worsen Kori Medina MD PGY1 Time Spent with Patient Time attestation: Total time spent providing and/or coordinating discharge services: Time spent: Greater than 30 minutes Exam Vital Signs Temp Pulse Resp BP Pulse Ox O2 Del Method 98.1 F 80 18 126/89 H 98 Room Air 01/06/25 08:00 01/06/25 08:00 01/06/25 08:00 01/06/25 08:00 01/06/25 08:00 01/06/25 08:00 Narrative Exam General: No acute distress, well nourished Eye: PERRL, EOMI, no pain on EOM HENT: Normocephalic, atraumatic, normal hearing, moist oral mucosa Neck: Supple, non-tender, no JVD, no lymphadenopathy Lungs: Clear to auscultation bilaterally, non-labored respirations, symmetric chest rise, no use of accessory muscles Heart: Normal S1 and S2, no S3 or S4 appreciated. Normal rate and regular rhythm, no murmurs, rubs gallops, or edema. Peripheral pulses intact bilaterally, capillary refill brisk distally Abdomen: Soft, TTP LUQ and LLQ, non-distended, normal bowel sounds. No guarding or rebound tenderness. Musculoskeletal: Normal range of motion and strength, no tenderness or swelling. No tenderness to palpation or reproducible chest pain upon palpation to useSkin: Skin is warm, dry, no rashes or lesions. Tattoos appreciated. No open wounds or areas of erythema appreciated. Neurologic: Alert, awake and oriented x3. CN II-XII grossly intact. Decreased sensation to light touch symmetric and b/l in LE to knee Psychiatric: Cooperative, appropriate mood and affect Discharge Plan Plan Patient Disposition: HOME (Self Care) Care Plan Goals: - Follow up with PCP within 1 week of discharge, if you do not have a primary care physician you can come see us at the [facility] by calling [phone] - You have been prescribed a blood thinner, which can cause bleeding so please be careful with falls, if you have an injury or fall please immediately go to the ED - Stop taking Lisinopril - Monitor blood pressure daily and keep a journal of BP measurements in the morning. Bring the BP log to your PCP appointment - Please continue to take your insulin and keep a journal of blood sugars with each meal. Bring the blood sugar log to your PCP appointment - Can take Reglan as needed for nausea and vomiting - Continue rest of medications as previously prescribed - Return to the ED or call EMS if symptoms return and/or worsen Prescriptions/Referrals Prescriptions/Med Rec: Continued insulin glargine [Lantus Solostar U-100 Insulin] 100 unit/mL (3 mL) insulin pen 20 unit subcut QPM 30 Days Qty: 6 2RF Rx Instructions: lantus 20 units QDAY (DME) FreeStyle Bernardo 2 [place] Misc See Rx Instructions .Route Qty: 1 0RF Rx Instructions: As directed (DME) FreeStyle Bernardo 3 Sensor Device See Rx Instructions .Route Qty: 2 11RF Rx Instructions: As directed (DME) blood-glucose meter [Accu-Chek Guide Me Glucose Mtr] Misc See Rx Instructions .Route Qty: 1 0RF Rx Instructions: Test TID and PRN as directed (DME) Accu-Chek Guide test strips Strip See Rx Instructions .Route Qty: 100 5RF Rx Instructions: Test TID and PRN as directed insulin lispro [Humalog KwikPen Insulin] 100 unit/mL insulin pen 1 sliding scale dose subcut USEASDIRECTD 30 Days Qty: 15 1RF (DME) lancets 30 gauge misc See Rx Instructions .Route Qty: 200 1RF Rx Instructions: As directed metoprolol succinate 25 mg tablet extended release 24 hr 25 mg PO QHS Qty: 30 2RF (DME) FreeStyle Bernardo 3 Sensor Device See Rx Instructions .Route Qty: 1 2RF Rx Instructions: As directed (DME) pen needle, diabetic [AboutTime Pen Needle] 31 gauge x 3/16 needle See Rx Instructions .Route Qty: 100 1RF Rx Instructions: As directed Januvia 100 mg tablet 25 mg PO QDAY acetaminophen [Tylenol 8 Hour] 650 mg tablet extended release 650 mg PO PRN PRN (Reason: Pain) pantoprazole 20 mg tablet,delayed release (DR/EC) 20 mg PO BID Qty: 60 0RF metoclopramide HCl [Reglan] 10 mg tablet 10 mg PO Q8HR Qty: 90 0RF amitriptyline 25 mg tablet 25 mg PO HS Patient Comments: TAKE 1 TABLET BY MOUTH ONCE DAILY AT BEDTIME gabapentin 600 mg tablet 600 mg PO TID atorvastatin 40 mg tablet 40 mg PO QDAY Patient Comments: TAKE 1 TABLET BY MOUTH EVERY DAY AT BEDTIME FOR 30 DAYS losartan 100 mg tablet 100 mg PO QDAY Patient Comments: TAKE 1 TABLET BY MOUTH ONCE DAILY ondansetron HCl 4 mg tablet 4 mg PO PRN clopidogrel 75 mg tablet 75 mg PO QDAY Patient Comments: TAKE 1 TABLET BY MOUTH ONCE DAILY FOR 21 DAYS THEN ONLY TAKE ASPIRIN sucralfate 1 gram tablet 1 g PO .with meals Patient Comments: take 1 tablet by mouth every morning BEFORE A MEAL and at bedtime fluoxetine 20 mg capsule 40 mg PO QDAY Changed Eliquis 5 mg tablet 5 mg PO BID 30 Days Qty: 60 0RF Discontinued lisinopril 10 mg tablet 10 mg PO QDAY Qty: 30 5RF celecoxib [Celebrex] 100 mg capsule 100 mg PO BID PRN (Reason: pain) Qty: 60 1RF metoclopramide HCl [Reglan] 10 mg tablet 10 mg PO Q6H PRN (Reason: nausea and vomiting) Qty: 30 0RF zolpidem 10 mg tablet 10 mg PO QHS MDD 10 mg PRN (Reason: insomnia) diclofenac sodium 1 % gel 2 g TOPICAL QDAY Patient Comments: apply 2 grams to affected area once daily loperamide [Anti-Diarrheal (loperamide)] 2 mg capsule 2 mg PO PRN PRN (Reason: loose stool) magnesium citrate Solution 150 ml PO QDAY PRN (Reason: constipation) Qty: 296 1RF meclizine 25 mg tablet 25 mg PO PRN Patient Comments: TAKE 1 TABLET BY MOUTH EVERY 12 HOURS NEEDED gabapentin 800 mg tablet 600 mg PO TID Referrals: No Primary/Family,Physician [Primary Care Provider] Patient/Caregiver Discharge Instructions Print Language: Uzbek Stand Alone Forms: Becky Award Info., Patient Portal Info Letter Discharge Order Discharge Orders: Discharge (Routine); Ordered 01/06/25 Ordered By: Suyapa Levine Quality Discharge Quality Measures VTE prophylaxis
--- NOTE | 2025-01-06 11:16 | PC.SS ---
Patient to d/c today. Patient is ambulatory and resides out of town. Patient has family support. Requesting pain meds frequently. No further d/c needs.
== END 2025-01-06 10:31 | disposition home or self-care (01) | DRG 638 ==
LOC: SERX 16:55 → SERHOLD 17:13 → S2NX 18:34
PROVIDERS: Admitting Provider Internal Medicine; Emergency Provider Emergency Medicine; Visit Provider Internal Medicine
DX: E11.00 Type 2 diabetes mellitus with hyperosmolarity without nonketotic hyperglycemic-hyperosmolar coma (NKHHC) (principal); D68.51 Activated protein C resistance; N17.9 Acute kidney failure, unspecified; Z79.4 Long term (current) use of insulin; I10 Essential (primary) hypertension; K58.9 Irritable bowel syndrome, unspecified; I48.91 Unspecified atrial fibrillation; F32.A Depression, unspecified; F41.9 Anxiety disorder, unspecified; Z91.148 Patient's other noncompliance with medication regimen for other reason; K31.84 Gastroparesis; E11.43 Type 2 diabetes mellitus with diabetic autonomic (poly)neuropathy; K27.9 Peptic ulcer, site unspecified, unspecified as acute or chronic, without hemorrhage or perforation; K57.30 Diverticulosis of large intestine without perforation or abscess without bleeding; R11.16 Cannabis hyperemesis syndrome; E11.42 Type 2 diabetes mellitus with diabetic polyneuropathy; E86.0 Dehydration; E87.6 Hypokalemia; Z79.01 Long term (current) use of anticoagulants; Z79.899 Other long term (current) drug therapy; Z86.73 Personal history of transient ischemic attack (TIA), and cerebral infarction without residual deficits; Z88.5 Allergy status to narcotic agent; Z87.11 Personal history of peptic ulcer disease; K76.9 Liver disease, unspecified
CPT/HCPCS: 36415; 36600; 51701; 71045; 74177; 76705; 80048; 80053; 80061; 80069; 80307; 80320; 81001; 82010; 82150; 82550; 82803; 83036; 83605; 83690; 83735; 83880; 84100; 84132; 84145; 84443; 84484; 85025; 85379; 85610; 85652; 85730; 86140; 87040; 87502; 87635; 93005; 93306; 96361; 96365; 96374; 96375; 99284; A4649; J1815; J2270; J2405; J2543; J2765; J3475; J3480; J3490; J7120; Q9967; A9270; G0480